=== PATIENT | female | born 1965 | race Caucasian/White ===

== ENCOUNTER 2016-11-14 11:25 | Emergency (ER) | payer OTHER ==
[~2016-11-14] VITALS: Ht 157.5 cm; Wt 37.9 kg
[~2016-11-14 11:25] MED LIST: ALBUAER2 INH; CHOL1000 PO; CITA40TA12 PO; DICY20TA10 PO; EFFSR75 PO; FLUT0.15; GABA1CAP PO; MOME200A INH; OLAN1TAB9 PO; PANT40TA PO; SPRIN/30 INH; SUCR1TAB29 PO; TAMO20TA9 PO; TOPI25TA10 PO
[2016-11-14 11:29] VITALS: TEMP 36.7; Ht 157.5 cm; Wt 37.9 kg
[2016-11-14] MEDS ORDERED: RIZATRIPTAN BENZOATE 10 MG TAB PO STA (11:57)
[2016-11-14] MEDS ORDERED: DiphenhydrAMINE HCL 50 MG/ML VIAL IV STA (12:04)
[2016-11-14] MEDS ORDERED: KETOROLAC TROMETHAMINE 15 MG/ML VIAL IV STA (12:04)
[2016-11-14] MEDS ORDERED: PROCHLORPERAZINE 5 MG/ML 2 ML VIAL IV STA (12:04)
[2016-11-14] MEDS ORDERED: KETOROLAC TROMETHAMINE 30 MG/ML VIAL ONE (12:51)
--- NOTE | 2016-11-14 13:53 | EMERGENCY ROOM VISIT NOTE ---
ED Visit Note First contact with patient: 11:47 CHIEF COMPLAINT: Migraine headache HISTORY OF PRESENT ILLNESS: This 51-year-old female patient presented to the emergency department via private vehicle with a gradual onset of a severe generalized headache that started approximately 1 hour prior to arrival. The patient states the migraine is similar to their typical migraines. There has been associated photophobia, nausea but no vomiting. The patient denies fever or chills recently, and there is no weakness or numbness of the extremities. There is no difficulty with speech or vision. No trauma to the head and no neck pain. The pain is severe, constant, and it is slowly increasing in severity. The patient rates the pain as constant and 9/10. The patient has taken Tylenol around 7 AM. The patient furnishes a prescription for Rizatriptan 10mg, which has 3 refills left on it but does not have the pill bottle. She states that she has not been able to fill the prescription yet. This is not the worst headache of the life and is similar to previous migraines. She follows with Dr. Ramirez of neurology for her headaches. REVIEW OF SYSTEMS: A review of systems was performed with positives and pertinent negatives listed in the history of present illness. All other systems were reviewed and are negative. ALLERGIES: As noted below MEDICATIONS: As noted below PMH: Migraines SOCIAL HISTORY: Patient lives locally with family PHYSICAL EXAM: Vital Signs: Reviewed Nurse's notes, vital signs stable. GENERAL : 51-year-old female, who appears in pain, but non toxic in appearance and in no acute distress. MENTAL STATUS: Alert, oriented, and coherent. HEENT: Normocephalic. PERRLA. EOMI. Nares patent without nuchal rigidity. Tympanic membranes pearly goldstein without erythema or effusion bilaterally. Mucous membranes moist. NECK: Supple, no nuchal rigidity, nontender, no lymphadenopathy. HEART: Regular rhythm and normal rate without murmurs, ectopy, gallops, or rubs. LUNGS: Clear to auscultation bilaterally without wheezes, rales or rhonchi. No dullness to percussion. No accessory muscle use. No retractions. SKIN: Normal. NEUROLOGICAL: Pupils are round, equal and react to light. The patient moves all extremities well and the gait is normal. EMERGENCY DEPARTMENT COURSE: The patient was seen and evaluated as above. The patient appears to be out of her medication, and just needs to pick pulling machine operator at the pharmacy. I offered her a tablet of the medication, and she quickly requested Dilaudid. I informed her that I this time to [place] comfortable providing her with narcotic, but will be happy to provide her with the medication of which she states that she is out of, and she has been prescribed previously for her migraines. The patient seemed to be slightly agitated at this, but the medication was ordered. I then returned and decided to offer the patient a typical migraine cocktail offered here in the emergency department, to include Benadryl Compazine and Toradol. She agreed to this medication combination. I canceled the initial rizatriptan. Because of her weight, the Benadryl was given at 25 mg intravenously, Compazine at 5 mg intravenously as well as Toradol 15 mg intravenously. Patient was reevaluated and was feeling much better. At this time she appears stable for discharge. She was educated to follow-up with her neurologist, or return for worsening. She was discharged with male driving. The differential diagnosis includes acute intracranial bleed , meningitis, encephalitis, mass or mass effect, sinusitis, infection, tumor, headache, temporal arteritis and carbon monoxide exposure, and migraine. The patient was discharged home in stable condition with Male driving. I suspect that the patient is experiencing a typical migraine, and may be exhibiting drug- seeking behavior therefore did not provide her with Dilaudid. Her subjective and objective examination is unremarkable for emergent process. DISCHARGE INSTRUCTIONS & TREATMENT: No driving or alcohol. Rest at home in a quiet dark place. Continue medications as prescribed. Follow up with family doctor if symptoms persist. Problem List Medical Problems: (1) H/O emphysema Status: Chronic Surgical Problems: (1) H/O: hysterectomy Status: Chronic Current/Historical Medications Scheduled Cholecalciferol (Vitamin D3), 2 TAB PO DAILY Citalopram Hydrobromide (Celexa), 40 MG PO DAILY Fluticasone Propionate (Nasal) (Flonase Allergy Relief), 1 SPRAY NA DAILY Gabapentin (Neurontin), 200 MG PO TID Mometasone Furoate-Formoterol (Dulera 200/5 Mcg), 1 AER INH BID Olanzapine (Zyprexa), 5 MG PO DAILY Pantoprazole (Protonix), 40 MG PO BID Sucralfate (Carafate), 1 GM PO ACHS Tamoxifen (Nolvadex), 20 MG PO HS Tiotropium [place] (Spiriva Handihaler), 1 CAP INH DAILY Topiramate (Topamax), 50 MG PO BID Venlafaxine Hcl (Effexor Extended Rel), 75 MG PO DAILY Scheduled PRN Albuterol (Ventolin Hfa), 1 PUFF INH QID PRN for Shortness of Breath Dicyclomine Hcl (Dicyclomine Hcl), 1 TAB PO QID PRN for Pain Allergies Coded Allergies: Adhesives (Verified Adverse Reaction, Mild, irritates skin, 11/14/16) Aspirin (Verified Adverse Reaction, Mild, iritates stomach, 11/14/16) Vital Signs Date Time Temp Pulse Resp B/P Pulse Ox O2 Delivery O2 Flow Rate FiO2 11/14/16 14:15 109 18 138/80 100 11/14/16 13:20 112 18 135/81 100 11/14/16 11:29 36.7 131 18 127/83 99 Room Air Medications Administered Medications (Trade) Dose Ordered Sig/Rosalino Route Start Time Stop Time Status Last Admin Dose Admin Diphenhydramine HCl (Benadryl Inj) 25 mg NOW STAT IV 11/14/16 12:04 11/14/16 12:06 DC 11/14/16 12:56 25 MG Prochlorperazine Edisylate (Compazine Inj) 5 mg NOW STAT IV 11/14/16 12:04 11/14/16 12:06 DC 11/14/16 12:57 5 MG Ketorolac Tromethamine (Toradol Inj) 30 mg STK-MED ONCE .ROUTE 11/14/16 12:51 11/14/16 12:52 DC 11/14/16 12:56 15 MG Departure Information Impression Primary Impression: Headache Dispostion Home / Self-Care Condition GOOD Referrals Candace Benedict M.D. (PCP) Patient Instructions My [facility] Additional Instructions You have been treated in the Emergency Department for a Headache. You have received pain medicine in the emergency department which impairs your ability to operate a vehicle. It is illegal for you to drive after receiving these medicines. For pain control, you can use the following [id number] medicine: Tylenol ibuprofen. Please pick pulling machine operator your prescription for the Maxalt (Rizatriptan ) You should relax in a quiet, dark place for the rest of the day. Avoid any possible triggers including: cigarette smoke, caffeine, nicotine, chocolate, wine, beer, loud noises or music, or bright lights. You should schedule a follow-up appointment in 2-3 days with your Primary Care Provider or established Neurologist for further evaluation and treatment of your Headache. Return to the Emergency Department if your current symptoms worsen despite treatment course outlined above, or if you develop any of the following symptoms : intractable pain despite aforementioned treatment course, visual disturbances , loss of vision, unilateral weakness or facial drooping, slurring of speech, loss of coordination, or loss of consciousness. Please return to the emergency department with any new/concerning symptoms.
[2016-11-14 14:15] VITALS: BP 138/80; PULSE 109; O2SAT 100
== END 2016-11-14 14:16 | disposition home or self-care (01) ==
LOC: C.EDB 11:26 → C.EDD 14:16
DX: G43.909 Migraine, unspecified, not intractable, without status migrainosus (principal); J43.9 Emphysema, unspecified; Z90.710 Acquired absence of both cervix and uterus; Z79.899 Other long term (current) drug therapy

== ENCOUNTER 2016-12-02 15:10 | Emergency (ER) | payer OTHER ==
[~2016-12-02] VITALS: Ht 157.5 cm; Wt 36.8 kg
[2016-12-02 15:13] VITALS: TEMP 36.8; Ht 157.5 cm; Wt 36.8 kg
[2016-12-02] MEDS ORDERED: ONDANSETRON INJ 2 MG/ML 2 ML VIAL IV STA (15:48)
[2016-12-02 15:56] LABS: BASO % 0.3 %; BASO ABS # 0.02 K/uL (0-0.2); COMPLETE YES; EOS % 0.6 %; HEMATOCRIT 42.2 % (37-47); IG% 0.3 %; LYMPH % 24.7 %; LYMPH ABS # 1.68 K/uL (1.2-3.4); MEAN CELL VOLUME 88.8 fL (80-100); MEAN CORPUSCULAR HEMOGLOBIN 30.7 pg (25-34); MEAN CORPUSCULAR HGB CONC 34.6 g/dl (32-36); MEAN PLATELET VOLUME 8.6 fL (7.4-10.4); NEUT % 68.1 %; PLATELET COUNT 259 K/uL (130-400); RED BLOOD COUNT 4.75 M/uL (4.2-5.4); WHITE BLOOD COUNT 6.79 K/uL (4.8-10.8)
[2016-12-02] MEDS: HYDROmorphone INJ 0.5 MG/0.5 ML SYR IV PRN ×2 (15:58→17:31)
[2016-12-02 16:00] LABS: PREG INTERNAL NEGATIVE QC NEG CLEAR BACKGROUND; PREG INTERNAL POSITIVE QC POS CONTROL LINE; URINE APPEARANCE CLEAR (CLEAR); URINE BILIRUBIN NEG (NEG); URINE COLOR YELLOW; URINE NITRITE NEG (NEG); URINE SPECIFIC GRAVITY 1.019 (1.000-1.030); UROBILINOGEN NEG (NEG); ZZUR CULT IF INDIC CLEAN CATCH NO
[2016-12-02] MEDS ORDERED: OPTIRAY 320 IV PRN (16:00)
[2016-12-02 16:03] LABS: MANUAL MICROSCOPIC REQUIRED? NO; REVIEW REQ? NO
[2016-12-02] MEDS ORDERED: EFFSR150 PO (16:24)
[2016-12-02] MEDS ORDERED: ROFL1TAB5 PO (16:24)
[2016-12-02] MEDS ORDERED: VNTHFA/IN INH (16:24)
[2016-12-02] MEDS ORDERED: ATV5X PO (16:24)
[2016-12-02] MEDS ORDERED: ALUM-30 PO (16:24)
[2016-12-02] MEDS ORDERED: VENL37.593 PO (16:24)
[2016-12-02 16:26] LABS: ALKALINE PHOSPHATASE 64 U/L (45-117); ALT/SGPT 20 U/L (12-78); AST/SGOT 12 U/L (15-37); BLOOD UREA NITROGEN 11 mg/dl (7-18); BUN/CREATININE RATIO 13.4 (10-20); CALCIUM 8.6 mg/dl (8.5-10.1); CARBON DIOXIDE 24 mmol/L (21-32); CHLORIDE 110 mmol/L (98-107); CREATININE 0.83 mg/dl (0.60-1.20); GLUCOSE 81 mg/dl (70-99); POTASSIUM 3.8 mmol/L (3.5-5.1); SODIUM 142 mmol/L (136-145)
--- NOTE | 2016-12-02 18:17 | DIAGNOSTIC IMAGING REPORT ---
CT OF THE ABDOMEN AND PELVIS WITH CONTRAST CLINICAL HISTORY: Right lower quadrant abdominal pain. COMPARISON STUDY: CT of the abdomen and pelvis January 31, 2016 TECHNIQUE: Following IV administration of 120 mL of Optiray-320, axial images of the abdomen and pelvis were obtained from the lung bases to the proximal femurs. Images were reviewed in the axial, sagittal, and coronal planes. IV contrast was administered without complication. Oral contrast was administered. CT DOSE: 236.78 mGy.cm FINDINGS: Several calcified granulomas are noted within the lungs. There are calcified granulomas within the spleen. The liver, adrenal glands, kidneys and pancreas are normal. There is no biliary or pancreatic ductal dilatation. No peripancreatic or pericholecystic infiltration. There is mild distention of the stomach. There is no evidence for a bowel obstruction. The appendix is normal. There is no ascites. No lymphadenopathy is present. Skeletal structures are unremarkable. The uterus is surgically absent. Pelvic calcifications reflect phleboliths. IMPRESSION: No acute process within the abdomen or pelvis. Normal appendix. Electronically signed by: Henri Salcedo M.D. 12/02/2016 6:16 PM Dictated Date/Time: 12/02/2016 6:10 PM
[2016-12-02 18:23] VITALS: BP 135/70; PULSE 88; O2SAT 98
[2016-12-02] MEDS ORDERED: BENTYL HOME PACK 10 MG VIAL PO ONE (18:45)
[2016-12-02] MEDS ORDERED: PHENERGAN 25MG HOMEPACK PO ONE (18:45)
--- NOTE | 2016-12-03 01:20 | EMERGENCY ROOM VISIT NOTE ---
History Report prepared by Bekah: Kirsten Castle Under the Supervision of: Dr. Frank Hannah M.D. First contact with patient: 15:41 Chief Complaint: ABDOMINAL PAIN Stated Complaint: RT SIDE PAIN Nursing Triage Summary: Pt c/o right lower abdomen, tylenol not helping. Patient began this morning. States urinating more often. Denies v/d, associates nausea. Pt states she lost 15 pounds in the last month "I've been having stomach problems...now I'm having stress problems" History of Present Illness The patient is a 51 year old female who presents to the Emergency Room with complaints of persistent right lower quadrant abdominal pain that began this morning. She currently rates her discomfort as a 9/10 in severity. The patient states that she has experienced similar pain in the past and describes her discomfort as a stabbing pain and cramping pain. She states that the stabbing pain comes and goes, but notes a persistent aching pain. The patient associates nausea with her symptoms today. She reports a normal appetite. The patient states that her pain worsens with movement. She states that several days ago she was constipated, but states that she has had normal bowel movements over the past day. The patient notes a history of a hysterectomy, but denies any history of a kidney stone, cholecystectomy, or appendectomy. She states that she has taken Tylenol without relief of her symptoms. Pt denies LOC, headache, fevers, chills, diaphoresis, visual changes, neck pain, chest pain, breathing difficulties, vomiting, back pain, melena, hematochezia, urinary symptoms, numbness, weakness, lymphadenopathy, rash, or other complaints. Source of History: patient Onset: this morning Position: abdomen (RLQ) Symptom Intensity: 9/10 Quality: ache, stabbing, cramping Timing: other (persistent) Modifying Factors (Worsening): movement Associated Symptoms: + nausea Review of Systems See HPI for pertinent positives and negatives. A total of ten systems were reviewed and were otherwise negative. Past Medical & Surgical Medical Problems: (1) H/O emphysema Surgical Problems: (1) H/O: hysterectomy (2) Hx of BSO (bilateral salpingo-oophorectomy) Family History Cancer Diabetes mellitus Heart disease Hypertension Kidney disease Kidney stones Liver disease Lung disease Seizures Social History Smoking Status: Current Every Day Smoker Drug Use: none Marital Status: Housing Status: lives with family Occupation Status: unemployed Current/Historical Medications Scheduled Alum & Mag Hydrox-Simethicone (Mylanta), 1 DOSE PO TID Cholecalciferol (Vitamin D3), 2 TAB PO DAILY Citalopram Hydrobromide (Celexa), 40 MG PO DAILY Fluticasone Propionate (Nasal) (Flonase Allergy Relief), 1 SPRAY NA DAILY Gabapentin (Neurontin), 200 MG PO TID Lorazepam (Lorazepam), 1 TAB PO BID Mometasone Furoate-Formoterol (Dulera 200/5 Mcg), 1 AER INH BID Olanzapine (Zyprexa), 5 MG PO DAILY Pantoprazole (Protonix), 40 MG PO BID Roflumilast (Daliresp), 1 TAB PO DAILY Sucralfate (Carafate), 1 GM PO ACHS Tamoxifen (Nolvadex), 20 MG PO HS Tiotropium [place] (Spiriva Handihaler), 1 CAP INH DAILY Topiramate (Topamax), 50 MG PO BID Venlafaxine Hcl (Venlafaxine Extended Rel), 1 CAP PO QAM Venlafaxine Hcl (Effexor Extended Rel), 1 CAP PO QAM Scheduled PRN Albuterol Hfa (Ventolin Hfa), 2-4 PUFFS INH Q6H PRN for SOB/Wheezing Dicyclomine Hcl (Dicyclomine Hcl), 1 TAB PO QID PRN for Pain Allergies Coded Allergies: Adhesives (Verified Adverse Reaction, Mild, irritates skin, 12/02/16) Aspirin (Verified Adverse Reaction, Mild, iritates stomach, 12/02/16) Physical Exam Vital Signs Date Time Temp Pulse Resp B/P Pulse Ox O2 Delivery O2 Flow Rate FiO2 12/02/16 18:23 88 16 135/70 98 Room Air 12/02/16 16:53 86 16 136/86 98 Room Air 12/02/16 16:07 97 12/02/16 15:59 88 16 127/72 100 Room Air 12/02/16 15:13 36.8 131 17 110/63 97 Room Air Physical Exam GENERAL: Awake, alert, well-appearing, in no distress HENT: Normocephalic, atraumatic. Oropharynx unremarkable. EYES: Normal conjunctiva. Sclera non-icteric. NECK: Supple. No nuchal rigidity. FROM. No JVD. RESPIRATORY: Clear to auscultation. CARDIAC: Regular rate, normal rhythm. Extremities warm and well perfused. Pulses equal. ABDOMEN: Mild guarding and tenderness to percussion in the right lower quadrant. Soft, non-distended. No rebound. No masses. RECTAL: Deferred. MUSCULOSKELETAL: Chest examination reveals no tenderness. The back is symmetrical on inspection without obvious abnormality. There is no CVA tenderness to palpation. No joint edema. LOWER EXTREMITIES: Calves are equal size bilaterally and non-tender. No edema. No discoloration. NEURO: Normal sensorium. No sensory or motor deficits noted. SKIN: No rash or jaundice noted. Medical Decision & Procedures ER Provider Diagnostic Interpretation: CT: Radiology results as stated below per my review and radiologist interpretation CT OF THE ABDOMEN AND PELVIS WITH CONTRAST CLINICAL HISTORY: Right lower quadrant abdominal pain. COMPARISON STUDY: CT of the abdomen and pelvis January 31, 2016 TECHNIQUE: Following IV administration of 120 mL of Optiray-320, axial images of the abdomen and pelvis were obtained from the lung bases to the proximal femurs. Images were reviewed in the axial, sagittal, and coronal planes. IV contrast was administered without complication. Oral contrast was administered. CT DOSE: 236.78 mGy.cm FINDINGS: Several calcified granulomas are noted within the lungs. There are calcified granulomas within the spleen. The liver, adrenal glands, kidneys and pancreas are normal. There is no biliary or pancreatic ductal dilatation. No peripancreatic or pericholecystic infiltration. There is mild distention of the stomach. There is no evidence for a bowel obstruction. The appendix is normal. There is no ascites. No lymphadenopathy is present. Skeletal structures are unremarkable. The uterus is surgically absent. Pelvic calcifications reflect phleboliths. IMPRESSION: No acute process within the abdomen or pelvis. Normal appendix. Electronically signed by: Henri Salcedo M.D. 12/02/2016 6:16 PM Dictated Date/Time: 12/02/2016 6:10 PM Laboratory Results 12/02/16 15:35 Red Blood Count 4.75, Mean Corpuscular Volume 88.8, Mean Corpuscular Hemoglobin 30.7, Mean Corpuscular Hemoglobin Concent 34.6, Mean Platelet Volume 8.6, Neutrophils (%) (Auto) 68.1, Lymphocytes (%) (Auto) 24.7, Monocytes (%) (Auto) 6.0, Eosinophils (%) (Auto) 0.6, Basophils (%) (Auto) 0.3, Neutrophils # (Auto) 4.62, Lymphocytes # (Auto) 1.68, Monocytes # (Auto) 0.41, Eosinophils # (Auto) 0.04, Basophils # (Auto) 0.02 12/02/16 15:35 Test 12/02/16 15:35 White Blood Count 6.79 K/uL (4.8-10.8) Red Blood Count 4.75 M/uL (4.2-5.4) Hemoglobin 14.6 g/dL (12.0-16.0) Hematocrit 42.2 % (37-47) Mean Corpuscular Volume 88.8 fL (80-100) Mean Corpuscular Hemoglobin 30.7 pg (25-34) Mean Corpuscular Hemoglobin Concent 34.6 g/dl (32-36) Platelet Count 259 K/uL (130-400) Mean Platelet Volume 8.6 fL (7.4-10.4) Neutrophils (%) (Auto) 68.1 % Lymphocytes (%) (Auto) 24.7 % Monocytes (%) (Auto) 6.0 % Eosinophils (%) (Auto) 0.6 % Basophils (%) (Auto) 0.3 % Neutrophils # (Auto) 4.62 K/uL (1.4-6.5) Lymphocytes # (Auto) 1.68 K/uL (1.2-3.4) Monocytes # (Auto) 0.41 K/uL (0.11-0.59) Eosinophils # (Auto) 0.04 K/uL (0-0.5) Basophils # (Auto) 0.02 K/uL (0-0.2) RDW Standard Deviation 43.4 fL (36.4-46.3) RDW Coefficient of Variation 13.3 % (11.5-14.5) Immature Granulocyte % (Auto) 0.3 % Immature Granulocyte # (Auto) 0.02 K/uL (0.00-0.02) Urine Color YELLOW Urine Appearance CLEAR (CLEAR) Urine pH 7.0 (4.5-7.5) Urine Specific [place] 1.019 (1.000-1.030) Urine Protein NEG (NEG) Urine Glucose (UA) NEG (NEG) Urine Ketones NEG (NEG) Urine Occult Blood NEG (NEG) Urine Nitrite NEG (NEG) Urine Bilirubin NEG (NEG) Urine Urobilinogen NEG (NEG) Urine Leukocyte Esterase NEG (NEG) Anion Gap 8.0 mmol/L (3-11) Est Creatinine Clear Calc Drug Dose 46.1 ml/min Estimated GFR () 94.0 Estimated GFR (Non- 81.1 BUN/Creatinine Ratio 13.4 (10-20) Calcium Level 8.6 mg/dl (8.5-10.1) Total Bilirubin 0.3 mg/dl (0.2-1) Direct Bilirubin < 0.1 mg/dl (0-0.2) Aspartate Amino Transf (AST/SGOT) 12 U/L (15-37) Alanine Aminotransferase (ALT/SGPT) 20 U/L (12-78) Alkaline Phosphatase 64 U/L (45-117) Total Protein 8.0 gm/dl (6.4-8.2) Albumin 4.0 gm/dl (3.4-5.0) Lipase 252 U/L (73-393) Human Chorionic Gonadotropin, Qual NEG (NEG) Laboratory results reviewed by me Medications Administered Medications (Trade) Dose Ordered Sig/Rosalino Route Start Time Stop Time Status Last Admin Dose Admin Hydromorphone HCl (Dilaudid Inj) 0.5 mg Q20M PRN IV 12/02/16 16:00 12/02/16 19:42 DC 12/02/16 17:31 0.5 MG Ondansetron HCl (Zofran Inj) 4 mg NOW STAT IV 12/02/16 15:48 12/02/16 15:49 DC 12/02/16 15:58 4 MG ED Course 1547: The patient was evaluated in room C2B. A complete history and physical exam was performed. 1548: Ordered Zofran Injection 4 mg IV. 1600: Ordered Dilaudid Inject 0.5 mg IV. 1632: I reevaluated the patient and she is doing well. 183: I reevaluated the patient. Discussed results and discharge instructions: She verbalized understanding and agreement. The patient is ready for discharge. 1845: I ordered Dicyclomine HCl 1 each PO, Promethazine HCl 1 homepack PO. Medical Decision Triage Nursing notes reviewed. The patient's presentation and history were concerning for abdominal pain. Etiologies such as appendicitis, diverticulitis, obstruction, inflammatory bowel disease, renal colic, PUD, biliary pathology, pancreatitis, mesenteric ischemia, aortic pathology, infections, genitourinary, UTI, perforated viscus, as well as others were entertained. The patient was evaluated. She had tenderness in the right lower quadrant. She was treated with Zofran, fluids, and Dilaudid. On reassessment she felt better. Her CBC, chemistry panel, LFTs, lipase, and urinalysis were unremarkable. Patient has had a prior RACHEL/BSO. CT imaging was ordered. The patient underwent CT imaging and this was unremarkable. The patient was reassessed and states that she was feeling much better. The patient did question if this may be related to stress. This is possible. I discussed conservative management with the patient. She felt comfortable with this. She will follow-up with her primary physician. She worsens in any way she will come back. By the evaluation outlined above other emergent etiologies such as those listed in the differential, as well as others, were deemed relatively unlikely. The patient and significant other were informed about the findings as listed above. All questions were answered and they were pleased with the treatment. Return instructions were outlined and the patient was discharged in stable condition. The patient was referred to her PCP for follow-up this week for a recheck of the current condition. The chart was completed utilizing [employer] Speech voice recognition software. Grammatical errors, random word insertions, pronoun errors, and incomplete sentences are an occasional consequence of this system due to software limitations, ambient noise, and hardware issues. Any formal questions or concerns about the content, text, or information contained within the body of this dictation should be directly addressed to the physician for clarification. [place] Drug Monitoring Program Search Results: patient reviewed within database, no issues identified ( prescriptions noted, but no issues identified) Impression Primary Impression: Right lower quadrant abdominal pain Scribe Attestation The scribe's documentation has been prepared under my direction and personally reviewed by me in its entirety. I confirm that the note above accurately reflects all work, treatment, procedures, and medical decision making performed by me. Departure Information Dispostion Home / Self-Care Referrals No Doctor, Assigned (PCP) Forms Call Back Authorization, HOME CARE DOCUMENTATION FORM, IMPORTANT VISIT INFORMATION Patient Instructions My [facility] Additional Instructions ABDOMINAL PAIN INSTRUCTIONS: DO NOT drive, drink alcohol, operate machinery, or perform dangerous activities today. You were given medications in the ER that can affect your ability to safely function or operate a vehicle. Bentyl(dicyclomine) 10 mg: Take one tablet 4 times daily as needed for abdominal pain. Discontinue this medication if you develop any rash, itching, increased abdominal pain, heartburn, increased nausea, constipation, or as needed. Acetaminophen(Tylenol) may be used for fever or pain. Use 650mg every six hours as needed. Call Phenergan(promethazine) tablets 25mg: Take one every six hours as needed for nausea. Avoid alcohol, operating machinery or dangerous equipment, working on ladders or roofs, DRIVING, or situations where being under the influence may be dangerous. Rest and drink plenty of fluids as tolerated. Slow sips of water or sports drinks are recommended instead of large amounts all at once. Continue current medications. Once your stomach is settled start with a clear liquid diet (jello, soup broth, etc.) and then advance as tolerated. You should avoid full, heavy meals for about 24 hrs from the time your symptoms resolved. Return to the ER immediately for worsening or persistent abdominal pain, vomiting, fevers, chest pains, difficulty breathing, black or bloody stools, worsening of your condition, or as needed. Follow up with your primary physician in 2-3 days for a recheck of your current condition.
== END 2016-12-02 18:56 | disposition home or self-care (01) ==
LOC: C.EDB 15:11 → C.EDC 18:56
DX: R10.31 Right lower quadrant pain (principal); Z90.710 Acquired absence of both cervix and uterus; Z80.9 Family history of malignant neoplasm, unspecified; Z83.3 Family history of diabetes mellitus; Z82.49 Family history of ischemic heart disease and other diseases of the circulatory system; Z82.0 Family history of epilepsy and other diseases of the nervous system; F17.210 Nicotine dependence, cigarettes, uncomplicated; Z79.899 Other long term (current) drug therapy

== ENCOUNTER 2016-12-24 19:02 | Emergency (ER) | payer OTHER ==
[~2016-12-24] VITALS: Ht 157.5 cm; Wt 38.7 kg
[~2016-12-24 19:02] MED LIST changes: -ALBUAER2 INH; +ALUM-30 PO; +ATV5X PO; +EFFSR150 PO; -EFFSR75 PO; +ROFL1TAB5 PO; +VENL37.593 PO; +VNTHFA/IN INH
[2016-12-24 19:06] VITALS: TEMP 36.9; Ht 157.5 cm; Wt 38.7 kg
[2016-12-24] MEDS ORDERED: ALUMINUM/MAGNESIUM SUSP 30 ML UDC PO STA (21:16)
[2016-12-24] MEDS ORDERED: ONDANSETRON INJ 2 MG/ML 2 ML VIAL IV STA (21:16)
[2016-12-24] MEDS ORDERED: LIDOCAINE HCL 2% VISC SOLN 20 ML UDC PO STA (21:16)
[2016-12-24 21:25] LABS: BASO % 0.2 %; BASO ABS # 0.01 K/uL (0-0.2); COMPLETE YES; EOS % 0.7 %; HEMATOCRIT 33.9 % (37-47); IG% 0.2 %; LYMPH % 29.6 %; LYMPH ABS # 1.63 K/uL (1.2-3.4); MEAN CELL VOLUME 87.6 fL (80-100); MEAN CORPUSCULAR HEMOGLOBIN 30.2 pg (25-34); MEAN CORPUSCULAR HGB CONC 34.5 g/dl (32-36); MEAN PLATELET VOLUME 8.7 fL (7.4-10.4); MONO % 7.5 %; NEUT % 61.8 %; PLATELET COUNT 270 K/uL (130-400); RED BLOOD COUNT 3.87 M/uL (4.2-5.4)
[2016-12-24 21:37] LABS: URINE APPEARANCE CLEAR (CLEAR); URINE BILIRUBIN NEG (NEG); URINE COLOR YELLOW; URINE NITRITE NEG (NEG); URINE SPECIFIC GRAVITY 1.022 (1.000-1.030); UROBILINOGEN NEG (NEG); ZZUR CULT IF INDIC CLEAN CATCH NO
[2016-12-24 21:42] LABS: BUN/CREATININE RATIO 16.7 (10-20); CREATININE 0.72 mg/dl (0.60-1.20); POTASSIUM 3.3 mmol/L (3.5-5.1)
[2016-12-24 21:42] LABS: MANUAL MICROSCOPIC REQUIRED? NO; REVIEW REQ? NO
[2016-12-24 21:45] LABS: ALB/GLOB RATIO 0.9 (0.9-2)
[2016-12-24] MEDS ORDERED: KETOROLAC TROMETHAMINE 30 MG/ML VIAL IV STA (22:26)
[2016-12-24] MEDS ORDERED: HYOSCYAMINE SULFATE 0.125 MG SL TAB SL STA (22:26)
[2016-12-24] MEDS ORDERED: FAMOTIDINE 20 MG TAB PO ONE (22:30)
[2016-12-24 22:51] LABS: CALCIUM 8.6 mg/dl (8.5-10.1)
[2016-12-24 23:05] VITALS: BP 133/75; PULSE 79; O2SAT 98
--- NOTE | 2016-12-25 00:35 | EMERGENCY ROOM VISIT NOTE ---
History Report prepared by Bekah: Osbaldo Romo Under the Supervision of: Dr. Bryant Adames M.D. First contact with patient: 21:06 Chief Complaint: ABDOMINAL PAIN Stated Complaint: BELLY PAIN Nursing Triage Summary: Epigastric pain that started this AM. Radiating into back. Took tylenol, carafate, and other "stomach meds". Nausea. History of Present Illness The patient is a 51 year old female who presents to the Emergency Room with complaints of intermittent, stabbing epigastric pain beginning this morning. She currently rates her discomfort a 9/10 in severity. The patient states that this morning she ate chinese toast and a ham and cheese [employer]. She reports that she took two doses of Tylenol, the first one worked and the second one did not. She states that she has had these symptoms of intermittently for a very long time. She's had multiple workups including evaluation of her gallbladder which has been negative. The patient notes that she has a history of GERD, and this feels like her GERD symptoms. She reports that she has had GERD for a few years now. She is nauseous. The patient denies fever, vomiting, melena, urinary symptoms, chest pain and shortness of breath. Source of History: patient Onset: this morning Position: abdomen (epigastric) Symptom Intensity: 9/10 Quality: stabbing Timing: intermittent Associated Symptoms: + nausea, No fevers, No chest pain, No SOB, No vomiting , No melena, No urinary symptoms Review of Systems See HPI for pertinent positives & negatives. A total of 10 systems reviewed and were otherwise negative. Past Medical & Surgical Medical Problems: (1) H/O emphysema Surgical Problems: (1) H/O: hysterectomy (2) Hx of BSO (bilateral salpingo-oophorectomy) Family History Cancer Diabetes mellitus Heart disease Hypertension Kidney disease Kidney stones Liver disease Lung disease Seizures Social History Smoking Status: Current Every Day Smoker Drug Use: none Marital Status: Housing Status: lives with family Occupation Status: unemployed Current/Historical Medications Scheduled Alum & Mag Hydrox-Simethicone (Mylanta), 1 DOSE PO TID Cholecalciferol (Vitamin D3), 2 TAB PO DAILY Citalopram Hydrobromide (Celexa), 40 MG PO DAILY Dicyclomine Hcl (Dicyclomine Hcl), 20 MG PO QID Fluticasone Propionate (Nasal) (Flonase Allergy Relief), 1 SPRAY NA DAILY Gabapentin (Neurontin), 200 MG PO TID Lorazepam (Lorazepam), 0.5 MG PO BID Mometasone Furoate-Formoterol (Dulera 200/5 Mcg), 1 AER INH BID Pantoprazole (Protonix), 40 MG PO BID Roflumilast (Daliresp), 1 TAB PO DAILY Sucralfate (Carafate), 1 GM PO ACHS Tamoxifen (Nolvadex), 20 MG PO HS Tiotropium [place] (Spiriva Handihaler), 1 CAP INH DAILY Topiramate (Topamax), 50 MG PO BID Venlafaxine Hcl (Venlafaxine Extended Rel), 1 CAP PO QAM Venlafaxine Hcl (Effexor Extended Rel), 1 CAP PO QAM Scheduled PRN Albuterol Hfa (Ventolin Hfa), 2-4 PUFFS INH Q6H PRN for SOB/Wheezing Allergies Coded Allergies: Adhesives (Verified Adverse Reaction, Mild, irritates skin, 12/24/16) Aspirin (Verified Adverse Reaction, Mild, iritates stomach, 12/24/16) Physical Exam Vital Signs Date Time Temp Pulse Resp B/P (MAP) Pulse Ox O2 Delivery O2 Flow Rate FiO2 12/24/16 23:05 79 18 133/75 98 12/24/16 21:32 82 12/24/16 21:30 84 18 140/87 98 Room Air 12/24/16 19:06 36.9 117 17 123/85 97 Room Air Physical Exam Constitutional: Vital signs reviewed. Eyes: Pupils are equal round reactive to light. Conjunctiva are noninjected. ENT: Pharynx is clear without erythema or exudate. Mucous membranes are moist. Neck supple without meningeal signs. Respiratory: Clear to auscultation bilaterally. Breath sounds are equal bilaterally. Cardiovascular: Regular rate and rhythm. No rubs or gallops. Abdomen: Epigastric tenderness, no guarding. GI: Soft, nondistended and nontender. Bowel sounds are present. Musculoskeletal: No peripheral edema. No lower extremity tenderness. Integumentary: No cyanosis. Neurological: The patient is awake and alert. No focal deficits. Psychiatric: Normal affect. Medical Decision & Procedures Laboratory Results 12/24/16 21:00 Red Blood Count 3.87, Mean Corpuscular Volume 87.6, Mean Corpuscular Hemoglobin 30.2, Mean Corpuscular Hemoglobin Concent 34.5, Mean Platelet Volume 8.7, Neutrophils (%) (Auto) 61.8, Lymphocytes (%) (Auto) 29.6, Monocytes (%) (Auto) 7.5, Eosinophils (%) (Auto) 0.7, Basophils (%) (Auto) 0.2, Neutrophils # (Auto) 3.40, Lymphocytes # (Auto) 1.63, Monocytes # (Auto) 0.41, Eosinophils # (Auto) 0.04, Basophils # (Auto) 0.01 12/24/16 21:00 Test 12/24/16 20:50 12/24/16 21:00 Urine Color YELLOW Urine Appearance CLEAR (CLEAR) Urine pH 7.0 (4.5-7.5) Urine Specific [place] 1.022 (1.000-1.030) Urine Protein NEG (NEG) Urine Glucose (UA) NEG (NEG) Urine Ketones NEG (NEG) Urine Occult Blood NEG (NEG) Urine Nitrite NEG (NEG) Urine Bilirubin NEG (NEG) Urine Urobilinogen NEG (NEG) Urine Leukocyte Esterase NEG (NEG) White Blood Count 5.50 K/uL (4.8-10.8) Red Blood Count 3.87 M/uL (4.2-5.4) Hemoglobin 11.7 g/dL (12.0-16.0) Hematocrit 33.9 % (37-47) Mean Corpuscular Volume 87.6 fL (80-100) Mean Corpuscular Hemoglobin 30.2 pg (25-34) Mean Corpuscular Hemoglobin Concent 34.5 g/dl (32-36) Platelet Count 270 K/uL (130-400) Mean Platelet Volume 8.7 fL (7.4-10.4) Neutrophils (%) (Auto) 61.8 % Lymphocytes (%) (Auto) 29.6 % Monocytes (%) (Auto) 7.5 % Eosinophils (%) (Auto) 0.7 % Basophils (%) (Auto) 0.2 % Neutrophils # (Auto) 3.40 K/uL (1.4-6.5) Lymphocytes # (Auto) 1.63 K/uL (1.2-3.4) Monocytes # (Auto) 0.41 K/uL (0.11-0.59) Eosinophils # (Auto) 0.04 K/uL (0-0.5) Basophils # (Auto) 0.01 K/uL (0-0.2) RDW Standard Deviation 43.9 fL (36.4-46.3) RDW Coefficient of Variation 13.6 % (11.5-14.5) Immature Granulocyte % (Auto) 0.2 % Immature Granulocyte # (Auto) 0.01 K/uL (0.00-0.02) Anion Gap 9.0 mmol/L (3-11) Est Creatinine Clear Calc Drug Dose 55.8 ml/min Estimated GFR () 111.6 Estimated GFR (Non- 96.3 BUN/Creatinine Ratio 16.7 (10-20) Calcium Level 8.6 mg/dl (8.5-10.1) Total Bilirubin 0.1 mg/dl (0.2-1) Aspartate Amino Transf (AST/SGOT) 17 U/L (15-37) Alanine Aminotransferase (ALT/SGPT) 20 U/L (12-78) Alkaline Phosphatase 58 U/L (45-117) Troponin I < 0.015 ng/ml (0-0.045) Total Protein 6.5 gm/dl (6.4-8.2) Albumin 3.1 gm/dl (3.4-5.0) Globulin 3.4 gm/dl (2.5-4.0) Albumin/Globulin Ratio 0.9 (0.9-2) Lipase 279 U/L (73-393) Laboratory results as reviewed by me. Medications Administered Medications (Trade) Dose Ordered Sig/Rosalino Route Start Time Stop Time Status Last Admin Dose Admin Lidocaine HCl (Viscous Lidocaine 2% Soln) 10 ml NOW STAT PO 12/24/16 21:16 12/24/16 21:17 DC 12/24/16 21:29 10 ML Al Hydroxide/Mg Hydroxide (Maalox Susp) 30 ml NOW STAT PO 12/24/16 21:16 12/24/16 21:17 DC 12/24/16 21:29 30 ML Ondansetron HCl (Zofran Inj) 4 mg NOW STAT IV 12/24/16 21:16 12/24/16 21:17 DC 12/24/16 21:29 4 MG Famotidine (Pepcid Tab) 20 mg NOW ONCE PO 12/24/16 22:30 12/24/16 22:31 DC 12/24/16 22:39 20 MG Hyoscyamine Sulfate (Levsin Tab) 0.125 mg NOW STAT SL 12/24/16 22:26 12/24/16 22:28 DC 12/24/16 22:39 0.125 MG Ketorolac Tromethamine (Toradol Inj) 10 mg NOW STAT IV 12/24/16 22:26 12/24/16 22:28 DC 12/24/16 22:39 10 MG ECG Indication: abdominal pain Rate (beats per minute): 92 Rhythm: normal sinus Findings: no ectopy, other (no ST elevation) ED Course 2108: The patient was evaluated in room C06. A complete history and physical exam was performed. 2115: Ordered Zofran Inj 4mg IV, Maalox Susp 30ml PO, Lidocaine HCl 10ml PO 2225: Ordered Toradol Inj 10mg IV, Levsin Tab 0.125mg SL 2229: Ordered Pepcid Tab 20mg PO 2238: I reevaluated the patient, and she is feeling better. I told her to follow up with her PCP and eat a bland diet. She declined a rectal exam and said she has been anemic in the past. The treatment plan was discussed, and she verbalized complete understanding. The patient was discharged home. Medical Decision This is a 51-year-old female presents with epigastric pain. Differential diagnosis includes GERD, peptic ulcer disease, gastritis, pancreatitis, cholelithiasis. I did perform a limited focused review of portions of the patient's old chart on the electronic medical record. The patient was seen here on December 02 for right-sided abdominal pain. She had a CT of the abdomen and pelvis that showed no acute process. Her blood work was unremarkable, and she had a negative test. She was treated with Dilaudid and Zofran, and she was told to follow up with her PCP. Medication Reconciliation: I attest that I have personally reviewed the patient' s current medication list. Blood Pressure Screening: Patient was found to have a slightly elevated blood pressure due to circumstances. I do not believe that the patient requires hypertension monitoring. I did evaluate the patient as noted above. She is presenting with epigastric pain which she has had for a long time. She states it is worse today and her usual medications were not helping. She does state that this feels like her GERD symptoms. IV access was established. The patient was placed on a continuous cardiac technologist. I did order and personally review the patient's 12- lead EKG as described above. I did treat her with Zofran and a GI cocktail. She did feel some relief but still had pain and so I did treat her with Pepcid and Levsin. She was also given Toradol 10 mg IV. I did order and review the patient's blood work as noted in the electronic medical record. Her white blood cell count is not elevated. She does have mild anemia. She states that she has had anemia in the past and declined rectal examination. She denies any melena or rectal bleeding. I did discuss the test results with her. I did recommend a bland diet and close follow up with her doctor. She was discharged in good condition. Impression Primary Impression: Epigastric abdominal pain Additional Impression: Anemia Scribe Attestation The scribe's documentation has been prepared under my direct and personally reviewed by me in its entirety. I confirm that the note above accurately reflects all work, treatment, procedures, and medical decision making performed by me. Departure Information Dispostion Home / Self-Care Referrals No Doctor, Assigned (PCP) Forms Call Back Authorization, HOME CARE DOCUMENTATION FORM, IMPORTANT VISIT INFORMATION Patient Instructions Abdominal Pain - [facility], ED Anemia Type Not Specified, My [facility] Additional Instructions You have been examined and treated today on an emergency basis only. This is not a substitute for, or an effort to provide, complete comprehensive medical care. It is impossible to recognize and treat all injuries or illnesses in a single emergency department visit. It is therefore important that you follow up closely with your physician. Call as soon as possible for an appointment. Return for worsening symptoms or if you develop fever, vomiting, black or bloody stools or any other concerning symptoms. Problem Qualifiers Additional Impression: Anemia Anemia type: unspecified type Qualified Codes: D64.9 - Anemia, unspecified
== END 2016-12-24 23:05 | disposition home or self-care (01) ==
LOC: C.EDB 19:03 → C.EDC 23:05
DX: R10.13 Epigastric pain (principal); D64.9 Anemia, unspecified; Z83.3 Family history of diabetes mellitus; Z82.49 Family history of ischemic heart disease and other diseases of the circulatory system; Z82.0 Family history of epilepsy and other diseases of the nervous system; F17.200 Nicotine dependence, unspecified, uncomplicated

== ENCOUNTER 2017-01-13 13:12 | Emergency (ER) | payer OTHER ==
[~2017-01-13] VITALS: Ht 157.5 cm; Wt 39.1 kg
[~2017-01-13 13:12] MED LIST changes: -OLAN1TAB9 PO; +TAMO20TA47 PO; -TAMO20TA9 PO
[2017-01-13 13:14] VITALS: TEMP 36.7; Ht 157.5 cm; Wt 39.1 kg
[2017-01-13] MEDS ORDERED: PROCHLORPERAZINE 5 MG/ML 2 ML VIAL IV STA (13:48)
[2017-01-13] MEDS ORDERED: DiphenhydrAMINE HCL 50 MG/ML VIAL IV STA (13:48)
[2017-01-13] MEDS ORDERED: ONDANSETRON INJ 2 MG/ML 2 ML VIAL IV STA (13:48)
[2017-01-13] MEDS ORDERED: KETOROLAC TROMETHAMINE 30 MG/ML VIAL IV STA (13:48)
--- NOTE | 2017-01-13 13:48 | EMERGENCY ROOM VISIT NOTE ---
History First contact with patient: 13:32 Chief Complaint: ABDOMINAL PAIN Stated Complaint: UPPER BELLY PAIN History of Present Illness The patient is a 51 year old female who presents to the Emergency Room with complaints of abdominal pain. The patient reports a 3 hour history of RUQ pain that is 9/10, stabbing, radiating to her back between her shoulder blades. She has been following with a GI doctor in [place] and says she had a gallbladder study done on Wednesday that just came back positive. She thinks it may have been a HIDA scan. She complains of 6/10 chronic abdominal pain but today it is more severe and sharp in character. She complains of nausea but denies any vomiting, diarrhea, fever, chills, chest pain, or any other acute complaints. Review of Systems See HPI for pertinent positives and negatives. A total of ten systems were reviewed and were otherwise negative. Past Medical/Surgical History Medical Problems: (1) H/O emphysema Surgical Problems: (1) H/O: hysterectomy (2) Hx of BSO (bilateral salpingo-oophorectomy) Family History Cancer Diabetes mellitus Heart disease Hypertension Kidney disease Kidney stones Liver disease Lung disease Seizures Social History Smoking Status: Current Every Day Smoker Drug Use: none Marital Status: Housing Status: lives with family Occupation Status: unemployed Current/Historical Medications Scheduled Alum & Mag Hydrox-Simethicone (Mylanta), 1 DOSE PO TID Cholecalciferol (Vitamin D3), 2 TAB PO DAILY Citalopram Hydrobromide (Celexa), 40 MG PO DAILY Dicyclomine Hcl (Dicyclomine Hcl), 20 MG PO QID Fluticasone Propionate (Nasal) (Flonase Allergy Relief), 1 SPRAY NA DAILY Gabapentin (Neurontin), 200 MG PO TID Lorazepam (Lorazepam), 0.5 MG PO BID Mometasone Furoate-Formoterol (Dulera 200/5 Mcg), 1 AER INH BID Pantoprazole (Protonix), 40 MG PO BID Roflumilast (Daliresp), 1 TAB PO DAILY Sucralfate (Carafate), 1 GM PO ACHS Tamoxifen (Nolvadex), 20 MG PO HS Tiotropium [place] (Spiriva Handihaler), 1 CAP INH DAILY Topiramate (Topamax), 50 MG PO BID Venlafaxine Hcl (Venlafaxine Extended Rel), 1 CAP PO QAM Venlafaxine Hcl (Effexor Extended Rel), 1 CAP PO QAM Scheduled PRN Albuterol Hfa (Ventolin Hfa), 2-4 PUFFS INH Q6H PRN for SOB/Wheezing Allergies Coded Allergies: Adhesives (Verified Adverse Reaction, Mild, irritates skin, 01/13/17) Aspirin (Verified Adverse Reaction, Mild, iritates stomach, 01/13/17) Physical Exam Vital Signs Date Time Temp Pulse Resp B/P (MAP) Pulse Ox O2 Delivery O2 Flow Rate FiO2 01/13/17 14:44 84 22 122/73 98 01/13/17 13:14 36.7 133 20 104/65 97 Room Air Physical Exam GENERAL: Awake, alert, well-appearing, in no distress HENT: Normocephalic, atraumatic. Oropharynx unremarkable. EYES: Normal conjunctiva. Sclera non-icteric. NECK: Supple. No nuchal rigidity. RESPIRATORY: Clear to auscultation. CARDIAC: Regular rate, normal rhythm. Extremities warm and well perfused. Pulses equal. ABDOMEN: Soft, non-distended. RUQ tenderness to palpation. No rebound or guarding. RECTAL: Deferred. MUSCULOSKELETAL: Chest examination reveals no tenderness. The back is symmetrical on inspection without obvious abnormality. There is no CVA tenderness to palpation. No joint edema. LOWER EXTREMITIES: Calves are equal size bilaterally and non-tender. No edema. No discoloration. NEURO: Normal sensorium. No sensory or motor deficits noted. SKIN: No rash or jaundice noted. Medical Decision & Procedures Laboratory Results 01/13/17 14:20 Red Blood Count 4.03, Mean Corpuscular Volume 88.8, Mean Corpuscular Hemoglobin 29.3, Mean Corpuscular Hemoglobin Concent 33.0, Mean Platelet Volume 8.8, Neutrophils (%) (Auto) 72.8, Lymphocytes (%) (Auto) 21.2, Monocytes (%) (Auto) 5.0, Eosinophils (%) (Auto) 0.6, Basophils (%) (Auto) 0.1, Neutrophils # (Auto) 5.11, Lymphocytes # (Auto) 1.49, Monocytes # (Auto) 0.35, Eosinophils # (Auto) 0.04, Basophils # (Auto) 0.01 7/5/17 14:20 Test 01/13/17 14:20 White Blood Count 7.02 K/uL (4.8-10.8) Red Blood Count 4.03 M/uL (4.2-5.4) Hemoglobin 11.8 g/dL (12.0-16.0) Hematocrit 35.8 % (37-47) Mean Corpuscular Volume 88.8 fL (80-100) Mean Corpuscular Hemoglobin 29.3 pg (25-34) Mean Corpuscular Hemoglobin Concent 33.0 g/dl (32-36) Platelet Count 228 K/uL (130-400) Mean Platelet Volume 8.8 fL (7.4-10.4) Neutrophils (%) (Auto) 72.8 % Lymphocytes (%) (Auto) 21.2 % Monocytes (%) (Auto) 5.0 % Eosinophils (%) (Auto) 0.6 % Basophils (%) (Auto) 0.1 % Neutrophils # (Auto) 5.11 K/uL (1.4-6.5) Lymphocytes # (Auto) 1.49 K/uL (1.2-3.4) Monocytes # (Auto) 0.35 K/uL (0.11-0.59) Eosinophils # (Auto) 0.04 K/uL (0-0.5) Basophils # (Auto) 0.01 K/uL (0-0.2) RDW Standard Deviation 45.6 fL (36.4-46.3) RDW Coefficient of Variation 13.9 % (11.5-14.5) Immature Granulocyte % (Auto) 0.3 % Immature Granulocyte # (Auto) 0.02 K/uL (0.00-0.02) Urine Test NEG (NEG) Anion Gap 8.0 mmol/L (3-11) Est Creatinine Clear Calc Drug Dose 58.0 ml/min Estimated GFR () 115.5 Estimated GFR (Non- 99.6 BUN/Creatinine Ratio 13.9 (10-20) Calcium Level 8.7 mg/dl (8.5-10.1) Total Bilirubin 0.2 mg/dl (0.2-1) Direct Bilirubin < 0.1 mg/dl (0-0.2) Aspartate Amino Transf (AST/SGOT) 13 U/L (15-37) Alanine Aminotransferase (ALT/SGPT) 17 U/L (12-78) Alkaline Phosphatase 55 U/L (45-117) Total Protein 7.0 gm/dl (6.4-8.2) Albumin 3.4 gm/dl (3.4-5.0) Lipase 134 U/L (73-393) Medications Administered Medications (Trade) Dose Ordered Sig/Rosalino Route Start Time Stop Time Status Last Admin Dose Admin Prochlorperazine Edisylate (Compazine Inj) 5 mg NOW STAT IV 01/13/17 13:48 01/13/17 13:50 DC 01/13/17 14:40 5 MG Diphenhydramine HCl (Benadryl Inj) 12.5 mg NOW STAT IV 01/13/17 13:48 01/13/17 13:50 DC 01/13/17 14:40 12.5 MG Ondansetron HCl (Zofran Inj) 4 mg NOW STAT IV 01/13/17 13:48 01/13/17 13:50 DC 01/13/17 14:40 4 MG Ketorolac Tromethamine (Toradol Inj) 30 mg NOW STAT IV 01/13/17 13:48 01/13/17 13:50 DC 01/13/17 14:40 30 MG Medical Decision Patient is a 51 year old female that presents with a 3 hour history of abdominal pain Etiologies such as appendicitis, diverticulitis, obstruction, inflammatory bowel disease, renal colic, PUD, biliary pathology, pancreatitis, mesenteric ischemia, aortic pathology, infections, genitourinary, UTI, perforated viscus, as well as others were entertained. Labs ordered: CBC, BMP, Lipase, LFTs Medications: Zofran, Toradol, Compazine, Benadryl Impression Primary Impression: Right upper quadrant abdominal pain Patient is a 51 year old female that presents with RUQ pain - Patient reports feeling better after medications given to the patient - Patient instructed to follow up with General Surgeon for Gallbladder follow up in [facility] Information Dispostion Home / Self-Care Condition GOOD Referrals No Doctor, Assigned (PCP) Patient Instructions My [facility]
--- NOTE | 2017-01-13 13:52 | EMERGENCY ROOM VISIT NOTE ---
History Report prepared by Bekah: Duncan Brown Under the Supervision of: Dr. Yusef Banks M.D. First contact with patient: 13:32 Chief Complaint: ABDOMINAL PAIN Stated Complaint: UPPER BELLY PAIN History of Present Illness The patient is a 51 year old female who presents to the Emergency Room with complaints of worsening abdominal pain that started 3 hours ago. She says that she had a HIDA scan 2 days ago, and it showed that the problem was with her gallbladder. The patient is waiting for her surgeon to call her back from [place]. She states that she ate something earlier today that did not agree with her, and she now has abdominal pain that she rates as a 9 out of 10 in severity and describes as stabbing, which radiates to her back between her shoulder blades. The patient says that she is here for pain control. Source of History: patient Onset: 3 hours ago Position: abdomen Symptom Intensity: 9/10 Quality: stabbing Timing: worsening Associated Symptoms: + back pain Note: No other associated symptoms noted. Review of Systems See HPI for pertinent positives & negatives. A total of 10 systems reviewed and were otherwise negative. Past Medical & Surgical Medical Problems: (1) H/O emphysema Surgical Problems: (1) H/O: hysterectomy (2) Hx of BSO (bilateral salpingo-oophorectomy) Family History Cancer Diabetes mellitus Heart disease Hypertension Kidney disease Kidney stones Liver disease Lung disease Seizures Social History Smoking Status: Current Every Day Smoker Drug Use: none Marital Status: Housing Status: lives with family Occupation Status: unemployed Current/Historical Medications Scheduled Alum & Mag Hydrox-Simethicone (Mylanta), 1 DOSE PO TID Cholecalciferol (Vitamin D3), 2 TAB PO DAILY Citalopram Hydrobromide (Celexa), 40 MG PO DAILY Dicyclomine Hcl (Dicyclomine Hcl), 20 MG PO QID Fluticasone Propionate (Nasal) (Flonase Allergy Relief), 1 SPRAY NA DAILY Gabapentin (Neurontin), 200 MG PO TID Lorazepam (Lorazepam), 0.5 MG PO BID Mometasone Furoate-Formoterol (Dulera 200/5 Mcg), 1 AER INH BID Pantoprazole (Protonix), 40 MG PO BID Roflumilast (Daliresp), 1 TAB PO DAILY Sucralfate (Carafate), 1 GM PO ACHS Tamoxifen (Nolvadex), 20 MG PO HS Tiotropium [place] (Spiriva Handihaler), 1 CAP INH DAILY Topiramate (Topamax), 50 MG PO BID Venlafaxine Hcl (Venlafaxine Extended Rel), 1 CAP PO QAM Venlafaxine Hcl (Effexor Extended Rel), 1 CAP PO QAM Scheduled PRN Albuterol Hfa (Ventolin Hfa), 2-4 PUFFS INH Q6H PRN for SOB/Wheezing Allergies Coded Allergies: Adhesives (Verified Adverse Reaction, Mild, irritates skin, 01/13/17) Aspirin (Verified Adverse Reaction, Mild, iritates stomach, 01/13/17) Physical Exam Vital Signs Date Time Temp Pulse Resp B/P (MAP) Pulse Ox O2 Delivery O2 Flow Rate FiO2 01/13/17 15:27 83 16 110/72 98 Room Air 01/13/17 14:44 84 22 122/73 98 01/13/17 13:14 36.7 133 20 104/65 97 Room Air Physical Exam GENERAL: Patient is a healthy-appearing well-nourished 51 year old female. HEAD: Normocephalic atraumatic EYES: Ocular movements intact pupils equal and react to light OROPHARYNX mucous membranes are moist no exudates present no erythema or edema present NECK: Supple no nuchal rigidity CHEST: Good equal expansion LUNGS: Clear and equal to auscultation CARDIAC: Normal S1 and S2 ABDOMEN: Soft no guarding. Tender in right upper quadrant. BACK: No CVA tenderness EXTREMITIES: No pain upon palpation normal muscle strength in all groups no clubbing cyanosis or edema NEURO: Patient is following commands and answering questions appropriately. Alert and oriented x3 Cranial Nerves 2-12 grossly intact Medical Decision & Procedures Laboratory Results 01/13/17 14:20 Red Blood Count 4.03, Mean Corpuscular Volume 88.8, Mean Corpuscular Hemoglobin 29.3, Mean Corpuscular Hemoglobin Concent 33.0, Mean Platelet Volume 8.8, Neutrophils (%) (Auto) 72.8, Lymphocytes (%) (Auto) 21.2, Monocytes (%) (Auto) 5.0, Eosinophils (%) (Auto) 0.6, Basophils (%) (Auto) 0.1, Neutrophils # (Auto) 5.11, Lymphocytes # (Auto) 1.49, Monocytes # (Auto) 0.35, Eosinophils # (Auto) 0.04, Basophils # (Auto) 0.01 01/13/17 14:20 Test 01/13/17 14:20 White Blood Count 7.02 K/uL (4.8-10.8) Red Blood Count 4.03 M/uL (4.2-5.4) Hemoglobin 11.8 g/dL (12.0-16.0) Hematocrit 35.8 % (37-47) Mean Corpuscular Volume 88.8 fL (80-100) Mean Corpuscular Hemoglobin 29.3 pg (25-34) Mean Corpuscular Hemoglobin Concent 33.0 g/dl (32-36) Platelet Count 228 K/uL (130-400) Mean Platelet Volume 8.8 fL (7.4-10.4) Neutrophils (%) (Auto) 72.8 % Lymphocytes (%) (Auto) 21.2 % Monocytes (%) (Auto) 5.0 % Eosinophils (%) (Auto) 0.6 % Basophils (%) (Auto) 0.1 % Neutrophils # (Auto) 5.11 K/uL (1.4-6.5) Lymphocytes # (Auto) 1.49 K/uL (1.2-3.4) Monocytes # (Auto) 0.35 K/uL (0.11-0.59) Eosinophils # (Auto) 0.04 K/uL (0-0.5) Basophils # (Auto) 0.01 K/uL (0-0.2) RDW Standard Deviation 45.6 fL (36.4-46.3) RDW Coefficient of Variation 13.9 % (11.5-14.5) Immature Granulocyte % (Auto) 0.3 % Immature Granulocyte # (Auto) 0.02 K/uL (0.00-0.02) Urine Test NEG (NEG) Anion Gap 8.0 mmol/L (3-11) Est Creatinine Clear Calc Drug Dose 58.0 ml/min Estimated GFR () 115.5 Estimated GFR (Non- 99.6 BUN/Creatinine Ratio 13.9 (10-20) Calcium Level 8.7 mg/dl (8.5-10.1) Total Bilirubin 0.2 mg/dl (0.2-1) Direct Bilirubin < 0.1 mg/dl (0-0.2) Aspartate Amino Transf (AST/SGOT) 13 U/L (15-37) Alanine Aminotransferase (ALT/SGPT) 17 U/L (12-78) Alkaline Phosphatase 55 U/L (45-117) Total Protein 7.0 gm/dl (6.4-8.2) Albumin 3.4 gm/dl (3.4-5.0) Lipase 134 U/L (73-393) Labs reviewed by ED physician. Medications Administered Medications (Trade) Dose Ordered Sig/Rosalino Route Start Time Stop Time Status Last Admin Dose Admin Prochlorperazine Edisylate (Compazine Inj) 5 mg NOW STAT IV 01/13/17 13:48 01/13/17 13:50 DC 01/13/17 14:40 5 MG Diphenhydramine HCl (Benadryl Inj) 12.5 mg NOW STAT IV 01/13/17 13:48 01/13/17 13:50 DC 01/13/17 14:40 12.5 MG Ondansetron HCl (Zofran Inj) 4 mg NOW STAT IV 01/13/17 13:48 01/13/17 13:50 DC 01/13/17 14:40 4 MG Ketorolac Tromethamine (Toradol Inj) 30 mg NOW STAT IV 01/13/17 13:48 01/13/17 13:50 DC 01/13/17 14:40 30 MG ED Course 1348: Ordered Toradol Inj 30 mg IV, Zofran Inj 4 mg IV, Benadryl Inj 12.5 mg IV , Compazine Inj 5 mg IV. 1403: Past medical records reviewed. The patient was evaluated in room B10. A complete history and physical examination was performed. 1520: Upon reexamination the patient is resting. I discussed results and treatment plan with the patient. She verbalizes agreement and understanding. The patient is ready for discharge. Medical Decision Differential diagnosis: Etiologies such as appendicitis, diverticulitis, PUD, biliary pathology, UTI, pancreatitis, obstruction, mesenteric ischemia, aortic pathology, infections, inflammatory bowel disease, renal colic, as well as others were entertained. Blood Pressure Screening: Patient was found to have normal blood pressure on screening and does not require follow up. Medication Reconciliation: I attest that I have personally reviewed the patient' s current medication list Resident Physician Supervision Note: I interviewed and examined the patient. Discussed with Dr. Wilkins and agree with findings and plan as documented in the note. Documented By: Yusef Banks Impression Primary Impression: Right upper quadrant abdominal pain Scribe Attestation The scribe's documentation has been prepared under my direction and personally reviewed by me in its entirety. I confirm that the note above accurately reflects all work, treatment, procedures, and medical decision making performed by me. Departure Information Dispostion Home / Self-Care Referrals No Doctor, Assigned (PCP) Patient Instructions My [facility] Additional Instructions - Follow up with your primary care physician in the next 1-2 days - Follow up with your surgeon in [place] for further evaluation of your Gallbladder Disease - If you present with any concerning symptoms including worsening pain, vomiting , fever, chills, or any other concerning symptoms please return to the emergency department or be evaluated by a physician
[2017-01-13 14:40] LABS: BASO % 0.1 %; BASO ABS # 0.01 K/uL (0-0.2); COMPLETE YES; EOS % 0.6 %; HEMATOCRIT 35.8 % (37-47); IG% 0.3 %; LYMPH % 21.2 %; LYMPH ABS # 1.49 K/uL (1.2-3.4); MEAN CELL VOLUME 88.8 fL (80-100); MEAN CORPUSCULAR HEMOGLOBIN 29.3 pg (25-34); MEAN PLATELET VOLUME 8.8 fL (7.4-10.4); NEUT % 72.8 %; PLATELET COUNT 228 K/uL (130-400); RED BLOOD COUNT 4.03 M/uL (4.2-5.4); WHITE BLOOD COUNT 7.02 K/uL (4.8-10.8)
[2017-01-13 14:57] LABS: ALT/SGPT 17 U/L (12-78); BLOOD UREA NITROGEN 10 mg/dl (7-18); BUN/CREATININE RATIO 13.9 (10-20); CALCIUM 8.7 mg/dl (8.5-10.1); CARBON DIOXIDE 22 mmol/L (21-32); CHLORIDE 111 mmol/L (98-107); GLUCOSE 78 mg/dl (70-99); POTASSIUM 3.8 mmol/L (3.5-5.1); SODIUM 141 mmol/L (136-145)
[2017-01-13 15:05] LABS: ALKALINE PHOSPHATASE 55 U/L (45-117); AST/SGOT 13 U/L (15-37)
[2017-01-13 15:27] VITALS: BP 110/72; PULSE 83; O2SAT 98
== END 2017-01-13 15:50 | disposition home or self-care (01) ==
LOC: C.EDB 13:13
DX: R10.11 Right upper quadrant pain (principal); J43.9 Emphysema, unspecified; F17.200 Nicotine dependence, unspecified, uncomplicated; Z90.710 Acquired absence of both cervix and uterus; Z90.79 Acquired absence of other genital organ(s); Z90.722 Acquired absence of ovaries, bilateral; Z83.3 Family history of diabetes mellitus; Z82.49 Family history of ischemic heart disease and other diseases of the circulatory system; Z84.1 Family history of disorders of kidney and ureter; Z82.0 Family history of epilepsy and other diseases of the nervous system

== ENCOUNTER 2017-02-16 11:44 | Emergency (ER) | payer OTHER ==
[~2017-02-16] VITALS: Ht 157.5 cm; Wt 40.1 kg
[2017-02-16 11:59] VITALS: TEMP 36.9; Ht 157.5 cm; Wt 40.1 kg
[2017-02-16] MEDS ORDERED: HYDROmorphone INJ 0.5 MG/0.5 ML SYR IV STA ×2 (12:47→13:53)
[2017-02-16] MEDS ORDERED: SODIUM CHLORIDE 0.9% 1000ML 1,000 ML IV STA (12:47)
[2017-02-16] MEDS ORDERED: KETOROLAC TROMETHAMINE 30 MG/ML VIAL IV STA (12:47)
[2017-02-16] MEDS ORDERED: ONDANSETRON INJ 2 MG/ML 2 ML VIAL IV STA (12:47)
[2017-02-16 13:08] LABS: URINE APPEARANCE CLEAR (CLEAR); URINE BILIRUBIN NEG (NEG); URINE COLOR YELLOW; URINE NITRITE NEG (NEG); URINE PH 7.5 (4.5-7.5); URINE SPECIFIC GRAVITY 1.015 (1.000-1.030); UROBILINOGEN NEG (NEG)
[2017-02-16 13:15] LABS: MANUAL MICROSCOPIC REQUIRED? NO; REVIEW REQ? NO
[2017-02-16 13:34] LABS: HEMATOCRIT 35.4 % (37-47); MEAN CELL VOLUME 87.8 fL (80-100); MEAN CORPUSCULAR HEMOGLOBIN 29.3 pg (25-34); MEAN CORPUSCULAR HGB CONC 33.3 g/dl (32-36); PLATELET COUNT 255 K/uL (130-400); RED BLOOD COUNT 4.03 M/uL (4.2-5.4); WHITE BLOOD COUNT 5.62 K/uL (4.8-10.8)
--- NOTE | 2017-02-16 13:50 | DIAGNOSTIC IMAGING REPORT ---
CT SCAN OF THE ABDOMEN AND PELVIS WITHOUT CONTRAST CLINICAL HISTORY: Right flank pain COMPARISON STUDY: 12/02/2016 TECHNIQUE: CT scan of the abdomen and pelvis was performed from the lung bases to the proximal femurs. Images are reviewed in the axial, sagittal, and coronal planes. IV contrast was not administered for this examination. A dose lowering technique was utilized adhering to the principles of ALARA. CT DOSE: 245.54 mGy.cm FINDINGS: Lower chest: There is underlying emphysema. Liver: The unenhanced liver is normal in size, contour, and attenuation. There is no intrahepatic biliary ductal dilatation. Gallbladder: Surgically absent Spleen: Normal in size and attenuation. Pancreas: Unremarkable. Adrenal glands: Unremarkable. Kidneys: No renal, ureteral, or bladder calculi are visualized. Bowel: Evaluation the bowel is limited given the lack of intravenous and oral contrast. There are no transition zones indicate bowel obstruction. There is mild fecal retention. There is no acute diverticulitis. The appendix is not visualized with certainty. No pericecal inflammatory changes are visualized. Peritoneum: There is no intraperitoneal free air or abdominal ascites. Vasculature: The abdominal aorta is normal in course and caliber. Adenopathy: None. Pelvic viscera: The uterus appears surgically absent Skeletal structures: No destructive osseous lesions are seen. IMPRESSION: 1. No renal, ureteral, or bladder calculi identified 2. No evidence of bowel obstruction. No evidence of free air. Electronically signed by: Yamil Harris M.D. 02/16/2017 1:49 PM Dictated Date/Time: 02/16/2017 1:45 PM
[2017-02-16 13:55] LABS: ALT/SGPT 19 U/L (12-78); AST/SGOT 16 U/L (15-37); BLOOD UREA NITROGEN 9 mg/dl (7-18); BUN/CREATININE RATIO 15.7 (10-20); CALCIUM 8.3 mg/dl (8.5-10.1); CARBON DIOXIDE 23 mmol/L (21-32); CHLORIDE 113 mmol/L (98-107); GLUCOSE 69 mg/dl (70-99); POTASSIUM 3.7 mmol/L (3.5-5.1); SODIUM 142 mmol/L (136-145)
[2017-02-16 13:58] LABS: ALKALINE PHOSPHATASE 56 U/L (45-117)
[2017-02-16 14:01] LABS: BASO % 0.2 %; BASO ABS # 0.01 K/uL (0-0.2); COMPLETE YES; EOS % 0.7 %; IG% 0.4 %; LYMPH % 26.5 %; LYMPH ABS # 1.49 K/uL (1.2-3.4); MONO % 4.4 %; NEUT % 67.8 %
--- NOTE | 2017-02-16 14:12 | EMERGENCY ROOM VISIT NOTE ---
History Report prepared by Bekah: Trevor Holbrook Under the Supervision of: Dr. Yusef Banks M.D. First contact with patient: 12:43 Chief Complaint: BACK PAIN Stated Complaint: PAIN IN LWR RT SIDE IN BACK History of Present Illness The patient is a 51 year old female who presents to the Emergency Room with complaints of waxing and waning right lower back pain beginning three days ago. She has a history of similar pain, but has never received a diagnosis. She has received imaging on her back before. The patient also complains of urinary symptoms, and right sided abdominal pain. She had a cholecystectomy three weeks ago. Nothing has improved her symptoms. Source of History: patient Onset: Three days ago Position: back (lower right) Timing: waxes/wanes Modifying Factors (Relieving): other (none) Associated Symptoms: + abdominal pain (right side), + urinary symptoms Review of Systems See HPI for pertinent positives & negatives. A total of 10 systems reviewed and were otherwise negative. Past Medical & Surgical Medical Problems: (1) H/O emphysema Surgical Problems: (1) H/O: hysterectomy (2) Hx of BSO (bilateral salpingo-oophorectomy) Family History Cancer Diabetes mellitus Heart disease Hypertension Kidney disease Kidney stones Liver disease Lung disease Seizures Social History Smoking Status: Current Every Day Smoker Drug Use: none Marital Status: Housing Status: lives with family Occupation Status: unemployed Current/Historical Medications Scheduled Alum & Mag Hydrox-Simethicone (Mylanta), 1 DOSE PO TID Cholecalciferol (Vitamin D3), 2 TAB PO DAILY Citalopram Hydrobromide (Celexa), 40 MG PO DAILY Dicyclomine Hcl (Dicyclomine Hcl), 20 MG PO QID Fluticasone Propionate (Nasal) (Flonase Allergy Relief), 1 SPRAY NA DAILY Gabapentin (Neurontin), 200 MG PO TID Lorazepam (Lorazepam), 0.5 MG PO BID Mometasone Furoate-Formoterol (Dulera 200/5 Mcg), 1 AER INH BID Pantoprazole (Protonix), 40 MG PO BID Roflumilast (Daliresp), 1 TAB PO DAILY Sucralfate (Carafate), 1 GM PO ACHS Tamoxifen (Nolvadex), 20 MG PO HS Tiotropium [place] (Spiriva Handihaler), 1 CAP INH DAILY Topiramate (Topamax), 50 MG PO BID Venlafaxine Hcl (Venlafaxine Extended Rel), 1 CAP PO QAM Venlafaxine Hcl (Effexor Extended Rel), 1 CAP PO QAM Scheduled PRN Albuterol Hfa (Ventolin Hfa), 2-4 PUFFS INH Q6H PRN for SOB/Wheezing Oxycodone/Acetaminophen 5MG/325MG (Percocet 5MG/325MG), 1-2 TAB PO Q4H PRN for Pain Allergies Coded Allergies: Adhesives (Verified Adverse Reaction, Mild, irritates skin, 01/13/17) Aspirin (Verified Adverse Reaction, Mild, iritates stomach, 01/13/17) Physical Exam Vital Signs Date Time Temp Pulse Resp B/P (MAP) Pulse Ox O2 Delivery O2 Flow Rate FiO2 02/16/17 14:30 96 139/95 97 02/16/17 13:54 86 16 138/99 99 Room Air 02/16/17 11:59 36.9 122 20 136/89 97 Room Air Physical Exam GENERAL: Patient is a healthy-appearing well-nourished female HEAD: Normocephalic atraumatic EYES: Ocular movements intact pupils equal and react to light OROPHARYNX mucous membranes are moist no exudates present no erythema or edema present NECK: Supple no nuchal rigidity CHEST: Good equal expansion LUNGS: Clear and equal to auscultation CARDIAC: Normal S1 and S2 ABDOMEN: Soft nontender no guarding BACK: No CVA tenderness EXTREMITIES: No pain upon palpation normal muscle strength in all groups no clubbing cyanosis or edema NEURO: Patient is following commands and answering questions appropriately. Alert and oriented x3 Cranial Nerves 2-12 grossly intact Medical Decision & Procedures ER Provider Diagnostic Interpretation: CT results as stated below per my review and radiologist interpretation: CT SCAN OF THE ABDOMEN AND PELVIS WITHOUT CONTRAST FINDINGS: Lower chest: There is underlying emphysema. Liver: The unenhanced liver is normal in size, contour, and attenuation. There is no intrahepatic biliary ductal dilatation. Gallbladder: Surgically absent Spleen: Normal in size and attenuation. Pancreas: Unremarkable. Adrenal glands: Unremarkable. Kidneys: No renal, ureteral, or bladder calculi are visualized. Bowel: Evaluation the bowel is limited given the lack of intravenous and oral contrast. There are no transition zones indicate bowel obstruction. There is mild fecal retention. There is no acute diverticulitis. The appendix is not visualized with certainty. No pericecal inflammatory changes are visualized. Peritoneum: There is no intraperitoneal free air or abdominal ascites. Vasculature: The abdominal aorta is normal in course and caliber. Adenopathy: None. Pelvic viscera: The uterus appears surgically absent Skeletal structures: No destructive osseous lesions are seen. IMPRESSION: 1. No renal, ureteral, or bladder calculi identified 2. No evidence of bowel obstruction. No evidence of free air. Electronically signed by: Yamil Harris M.D. Laboratory Results 02/16/17 13:15 Red Blood Count 4.03, Mean Corpuscular Volume 87.8, Mean Corpuscular Hemoglobin 29.3, Mean Corpuscular Hemoglobin Concent 33.3, Mean Platelet Volume 9.0, Neutrophils (%) (Auto) 67.8, Lymphocytes (%) (Auto) 26.5, Monocytes (%) (Auto) 4.4, Eosinophils (%) (Auto) 0.7, Basophils (%) (Auto) 0.2, Neutrophils # (Auto) 3.81, Lymphocytes # (Auto) 1.49, Monocytes # (Auto) 0.25, Eosinophils # (Auto) 0.04, Basophils # (Auto) 0.01 02/16/17 13:15 Test 02/16/17 12:50 02/16/17 13:15 Urine Color YELLOW Urine Appearance CLEAR (CLEAR) Urine pH 7.5 (4.5-7.5) Urine Specific [place] 1.015 (1.000-1.030) Urine Protein NEG (NEG) Urine Glucose (UA) NEG (NEG) Urine Ketones NEG (NEG) Urine Occult Blood NEG (NEG) Urine Nitrite NEG (NEG) Urine Bilirubin NEG (NEG) Urine Urobilinogen NEG (NEG) Urine Leukocyte Esterase NEG (NEG) White Blood Count 5.62 K/uL (4.8-10.8) Red Blood Count 4.03 M/uL (4.2-5.4) Hemoglobin 11.8 g/dL (12.0-16.0) Hematocrit 35.4 % (37-47) Mean Corpuscular Volume 87.8 fL (80-100) Mean Corpuscular Hemoglobin 29.3 pg (25-34) Mean Corpuscular Hemoglobin Concent 33.3 g/dl (32-36) Platelet Count 255 K/uL (130-400) Mean Platelet Volume 9.0 fL (7.4-10.4) Neutrophils (%) (Auto) 67.8 % Lymphocytes (%) (Auto) 26.5 % Monocytes (%) (Auto) 4.4 % Eosinophils (%) (Auto) 0.7 % Basophils (%) (Auto) 0.2 % Neutrophils # (Auto) 3.81 K/uL (1.4-6.5) Lymphocytes # (Auto) 1.49 K/uL (1.2-3.4) Monocytes # (Auto) 0.25 K/uL (0.11-0.59) Eosinophils # (Auto) 0.04 K/uL (0-0.5) Basophils # (Auto) 0.01 K/uL (0-0.2) RDW Standard Deviation 45.6 fL (36.4-46.3) RDW Coefficient of Variation 14.1 % (11.5-14.5) Immature Granulocyte % (Auto) 0.4 % Immature Granulocyte # (Auto) 0.02 K/uL (0.00-0.02) Anion Gap 6.0 mmol/L (3-11) Est Creatinine Clear Calc Drug Dose 69.4 ml/min Estimated GFR () 121.5 Estimated GFR (Non- 104.8 BUN/Creatinine Ratio 15.7 (10-20) Calcium Level 8.3 mg/dl (8.5-10.1) Total Bilirubin 0.4 mg/dl (0.2-1) Direct Bilirubin < 0.1 mg/dl (0-0.2) Aspartate Amino Transf (AST/SGOT) 16 U/L (15-37) Alanine Aminotransferase (ALT/SGPT) 19 U/L (12-78) Alkaline Phosphatase 56 U/L (45-117) Total Protein 6.9 gm/dl (6.4-8.2) Albumin 3.4 gm/dl (3.4-5.0) Lipase 223 U/L (73-393) Labs reviewed by ED physician. Medications Administered Medications (Trade) Dose Ordered Sig/Rosalino Route Start Time Stop Time Status Last Admin Dose Admin Sodium Chloride 1,000 ml @ 999 mls/hr Q1H1M STAT IV 02/16/17 12:47 02/16/17 13:47 DC 02/16/17 13:19 999 MLS/HR Ketorolac Tromethamine (Toradol Inj) 30 mg NOW STAT IV 02/16/17 12:47 02/16/17 12:49 DC 02/16/17 13:20 30 MG Hydromorphone HCl (Dilaudid Inj) 0.5 mg NOW STAT IV 02/16/17 12:47 02/16/17 12:49 DC 02/16/17 13:20 0.5 MG Ondansetron HCl (Zofran Inj) 4 mg NOW STAT IV 02/16/17 12:47 02/16/17 12:49 DC 02/16/17 13:20 4 MG Hydromorphone HCl (Dilaudid Inj) 0.5 mg NOW STAT IV 02/16/17 13:53 02/16/17 13:54 DC 02/16/17 14:11 0.5 MG ED Course 1244: Past medical records reviewed. The patient was evaluated in room B11A. A complete history and physical examination was performed. 1247: Ordered Zofran Inj 4 mg IV, Dilaudid Inj 0.5 mg IV, Toradol Inj 30 mg IV, Sodium Chloride 1000 ml @ 999 mls/hr IV. 1353: Ordered Dilaudid Inj 0.5 mg IV. 1415: Upon reexamination the patient is resting comfortably. I discussed results and treatment plan with the patient. She verbalizes agreement and understanding. The patient is ready for discharge. Medical Decision Differential diagnosis: Etiologies such as musculoskeletal, disc herniation, fracture, aortic disease, metastatic disease, cord compression, discitis, infection, renal colic, gastrointestinal, acute exacerbation of chronic back pain, sciatica, cauda equina, as well as others were entertained. This is a 51-year-old female who presents emergency department complaining of right-sided flank pain. Serial abdominal examinations were performed on the patient in the emergency department and at no time did the patient exhibit abdominal tenderness on examination or surgical abdomen. She was sent for CAT scan of the abdomen pelvis however there is no evidence of acute process. The patient does appear to be constipated therefore I recommended magnesium citrate cleanout. While in the emergency department an IV was established, the patient was given Dilaudid, Zofran. Repeat examination revealed improvement the patient 's symptoms. I do feel that the patient is well enough to be discharged home for follow-up with her primary care physician. Patient was in agreement with the treatment plan. Medication Reconcilliation Current Medication List: was personally reviewed by me Blood Pressure Screening Patient's blood pressure: Elevated blood pressure Blood pressure disposition: Referred to PCP Impression Primary Impression: Flank pain Additional Impression: Constipation Scribe Attestation The scribe's documentation has been prepared under my direction and personally reviewed by me in its entirety. I confirm that the note above accurately reflects all work, treatment, procedures, and medical decision making performed by me. Departure Information Dispostion Home / Self-Care Prescriptions Oxycodone/Acetaminophen 5MG/325MG (PERCOCET 5MG/325MG) Tab 1-2 TAB PO Q4H Y for Pain, #14 TAB Prov: Yusef Banks MD 02/16/17 Referrals No Doctor, Assigned (PCP) Forms HOME CARE DOCUMENTATION FORM, IMPORTANT VISIT INFORMATION Patient Instructions ED Flank Pain Uncertain Cause, My [facility] Additional Instructions Take 10 oz bottle of miralax; Add to 16 oz of gatorade Drink continuously until moving creamy stools Clear liquid diet for next 48 hours Return if you develop fevers or pain worsens You were found to have an elevated blood pressure today (>120 sytolic or >90 diastolic). Per medicare guidelines, you need to follow up with this blood pressure screening with your Primary Care Physician (PCP). For a new PCP call [phone]. You received narcotic or benzodiazepene medication while in the emergency room today. Do not drive, operate heavy machinery, or drink alcohol under the influence of this medication. Take 600 mg Ibuprofen every 6 hours Take Percocet for breakthrough pain Culture results are usually available in approx 48 hours You have been examined and treated today on an emergency basis only. This is not a substitute for, or an effort to provide, complete comprehensive medical care. It is impossible to recognize and treat all injuries or illnesses in a single emergency department visit. It is therefore important that you follow up closely with your PCP. Call as soon as possible for an appointment. Thank you for your time and consideration. I look forward to speaking with you again soon. Please don't hesitate to call us if you have any questions. Problem Qualifiers Additional Impression: Constipation Constipation type: unspecified constipation type Qualified Codes: K59.00 - Constipation, unspecified
[2017-02-16] MEDS ORDERED: OXYC-57 PO (14:18)
[2017-02-16 14:30] VITALS: BP 139/95; PULSE 96; O2SAT 97
== END 2017-02-16 14:32 | disposition home or self-care (01) ==
LOC: C.EDB 11:45
DX: R10.9 Unspecified abdominal pain (principal); K59.00 Constipation, unspecified; Z83.3 Family history of diabetes mellitus; Z82.49 Family history of ischemic heart disease and other diseases of the circulatory system; Z82.0 Family history of epilepsy and other diseases of the nervous system; F17.200 Nicotine dependence, unspecified, uncomplicated

== ENCOUNTER 2017-02-21 14:38 | Emergency (ER) | payer OTHER ==
[~2017-02-21] VITALS: Ht 157.5 cm; Wt 38.5 kg
[~2017-02-21 14:38] MED LIST changes: +OXYC-57 PO
[2017-02-21 14:44] VITALS: TEMP 36.6; Ht 157.5 cm; Wt 38.5 kg
[2017-02-21] MEDS ORDERED: ONDANSETRON 8 MG/54 ML D5W IV STA (15:01)
[2017-02-21] MEDS ORDERED: ALUMINUM/MAGNESIUM SUSP 30 ML UDC PO STA (15:01)
[2017-02-21] MEDS ORDERED: SODIUM CHLORIDE 0.9% 1000ML 1,000 ML IV STA (15:01)
[2017-02-21] MEDS ORDERED: FENTANYL CITRATE INJ 50 MCG/1 ML 2 ML VIAL IV STA (15:01)
--- NOTE | 2017-02-21 15:08 | EMERGENCY ROOM VISIT NOTE ---
History Report prepared by Bekah: Hari Izquierdo Under the Supervision of: Dr. Tamia Valentin D.O. First contact with patient: 14:48 Chief Complaint: GI ASSESSMENT Stated Complaint: PAIN BTWN SHOULDER BLADES AND ABOVE BELLY BUTTON Nursing Triage Summary: Patient c/o pain between shoulder blades and upper mid abdomen that began about noon. Gall bladder removed 3 weeks ago. Ate something greasy. History of Present Illness The patient is a 51 year old female who presents to the Emergency Room with complaints of RUQ abdominal pain that began 3 hours ago. She rates her pain an 8 /10 in severity. The patient received a cholecystectomy 3 weeks ago. There were no complications with the procedure and her follow up appointment with her surgeon was normal as well. About twenty minutes before the pain began, the patient ate greasy food. Her pain began radiates to in between her shoulder blades, but then progressed to her RUQ. Her last bowel movement was normal this am. She denies any vomiting or abnormal urinary symptoms. She is currently nauseated. She has a past medical history of a hysterectomy, small hiatal hernia , and GERD. She denies any history of stomach ulcers, bowel history, or cardiac history. She takes Carafate regularly. She also took Tylenol KNEE BOLTER. She states she has been doing well and healing since her surgery. States this week she was slowly reintroducing other foods again. Source of History: patient Onset: 3 hours ago Position: abdomen (RUQ) Symptom Intensity: 8/10 Quality: ache Timing: constant Modifying Factors (Worsening): eating Associated Symptoms: + nausea, No vomiting, No urinary symptoms Review of Systems See HPI for pertinent positives & negatives. A total of 10 systems reviewed and were otherwise negative. Past Medical & Surgical Medical Problems: (1) H/O emphysema Surgical Problems: (1) H/O: hysterectomy (2) Hx of BSO (bilateral salpingo-oophorectomy) Family History Cancer Diabetes mellitus Heart disease Hypertension Kidney disease Kidney stones Liver disease Lung disease Seizures Social History Smoking Status: Current Every Day Smoker Drug Use: none Marital Status: Housing Status: lives with family Occupation Status: unemployed Current/Historical Medications Scheduled Cholecalciferol (Vitamin D3), 2 TAB PO DAILY Citalopram Hydrobromide (Celexa), 40 MG PO DAILY Dicyclomine Hcl (Dicyclomine Hcl), 20 MG PO QID Fluticasone Propionate (Nasal) (Flonase Allergy Relief), 1 SPRAY NA DAILY Gabapentin (Neurontin), 200 MG PO TID Lorazepam (Lorazepam), 0.5 MG PO BID Mometasone Furoate-Formoterol (Dulera 200/5 Mcg), 1 AER INH BID Pantoprazole (Protonix), 40 MG PO BID Roflumilast (Daliresp), 1 TAB PO DAILY Sucralfate (Carafate), 1 GM PO ACHS Tamoxifen (Nolvadex), 20 MG PO HS Tiotropium [place] (Spiriva Handihaler), 1 CAP INH DAILY Topiramate (Topamax), 50 MG PO BID Venlafaxine Hcl (Venlafaxine Extended Rel), 1 CAP PO QAM Venlafaxine Hcl (Effexor Extended Rel), 1 CAP PO QAM Scheduled PRN Albuterol Hfa (Ventolin Hfa), 2-4 PUFFS INH Q6H PRN for SOB/Wheezing Oxycodone/Acetaminophen 5MG/325MG (Percocet 5MG/325MG), 1-2 TAB PO Q4H PRN for Pain Allergies Coded Allergies: Adhesives (Verified Adverse Reaction, Mild, irritates skin, 01/13/17) Aspirin (Verified Adverse Reaction, Mild, iritates stomach, 01/13/17) Physical Exam Vital Signs Date Time Temp Pulse Resp B/P (MAP) Pulse Ox O2 Delivery O2 Flow Rate FiO2 02/21/17 19:47 73 18 118/65 99 02/21/17 17:26 82 18 126/64 98 Room Air 02/21/17 14:44 36.6 127 20 99/68 97 Room Air Physical Exam GENERAL: alert, well appearing, very thin body habitus, no distress, non-toxic EYE EXAM: normal conjunctiva, PERRL and EOM's grossly intact OROPHARYNX: no exudate, no erythema, lips, buccal mucosa, and tongue normal and mucous membranes are dry NECK: supple, no nuchal rigidity, no adenopathy, non-tender LUNGS: Decreased breath sounds. No wheezes, rhonchi, or rales. Normal chest wall mechanics HEART: no murmurs, S1 normal and S2 normal ABDOMEN: abdomen soft, with mid epigastrium tenderness to palpation, normo- active bowel sounds, no masses, no rebound or guarding. No organomegaly. BACK: Back is symmetrical on inspection and there is no deformity, no midline tenderness, no CVA tenderness. Upper thoracic bilateral perispinal muscle tenderness. No step off. SKIN: no rashes and no bruising UPPER EXTREMITIES: upper extremities are grossly normal. LOWER EXTREMITIES: No pitting edema. NEURO EXAM: Normal sensorium, cranial nerves II-XII grossly intact, normal speech, no gross weakness of arms, no gross weakness of legs. Medical Decision & Procedures ER Provider Diagnostic Interpretation: Radiology results have been interpreted by the radiologist and reviewed by me. PA CHEST RADIOGRAPH AND UPRIGHT AND SUPINE AP RADIOGRAPHS OF THE ABDOMEN CLINICAL HISTORY: Epigastric pain. COMPARISON STUDY: Chest radiograph June 07, [address] of the abdomen and pelvis February 16, 2017. FINDINGS: Several calcified left lung nodules are noted. Left apical opacity favors scarring. There may be scarring within the right lung apex as well. There are old right rib fractures. Cardiomediastinal silhouette is normal. There is no free air. Cholecystectomy clips are present. Calcified granulomas within the spleen are noted. IMPRESSION: 1. No free air or evidence of bowel obstruction. 2. No acute cardiopulmonary findings. Electronically signed by: Henri Salcedo M.D. 02/21/2017 4:16 PM Dictated Date/Time: 02/21/2017 4:13 PM Laboratory Results 02/21/17 15:20 Red Blood Count 4.12, Mean Corpuscular Volume 87.9, Mean Corpuscular Hemoglobin 30.1, Mean Corpuscular Hemoglobin Concent 34.3, Mean Platelet Volume 8.9, Neutrophils (%) (Auto) 63.8, Lymphocytes (%) (Auto) 28.1, Monocytes (%) (Auto) 6.8, Eosinophils (%) (Auto) 0.7, Basophils (%) (Auto) 0.2, Neutrophils # (Auto) 3.56, Lymphocytes # (Auto) 1.57, Monocytes # (Auto) 0.38, Eosinophils # (Auto) 0.04, Basophils # (Auto) 0.01 02/21/17 15:20 Test 02/21/17 15:20 White Blood Count 5.58 K/uL (4.8-10.8) Red Blood Count 4.12 M/uL (4.2-5.4) Hemoglobin 12.4 g/dL (12.0-16.0) Hematocrit 36.2 % (37-47) Mean Corpuscular Volume 87.9 fL (80-100) Mean Corpuscular Hemoglobin 30.1 pg (25-34) Mean Corpuscular Hemoglobin Concent 34.3 g/dl (32-36) Platelet Count 244 K/uL (130-400) Mean Platelet Volume 8.9 fL (7.4-10.4) Neutrophils (%) (Auto) 63.8 % Lymphocytes (%) (Auto) 28.1 % Monocytes (%) (Auto) 6.8 % Eosinophils (%) (Auto) 0.7 % Basophils (%) (Auto) 0.2 % Neutrophils # (Auto) 3.56 K/uL (1.4-6.5) Lymphocytes # (Auto) 1.57 K/uL (1.2-3.4) Monocytes # (Auto) 0.38 K/uL (0.11-0.59) Eosinophils # (Auto) 0.04 K/uL (0-0.5) Basophils # (Auto) 0.01 K/uL (0-0.2) RDW Standard Deviation 44.7 fL (36.4-46.3) RDW Coefficient of Variation 14.0 % (11.5-14.5) Immature Granulocyte % (Auto) 0.4 % Immature Granulocyte # (Auto) 0.02 K/uL (0.00-0.02) Red Blood Cell Morphology Unremarkable Anion Gap 9.0 mmol/L (3-11) Est Creatinine Clear Calc Drug Dose 54.0 ml/min Estimated GFR () 108.0 Estimated GFR (Non- 93.1 BUN/Creatinine Ratio 13.9 (10-20) Lactic Acid Level 0.8 mmol/L (0.4-2.0) Calcium Level 8.2 mg/dl (8.5-10.1) Total Bilirubin 0.4 mg/dl (0.2-1) Aspartate Amino Transf (AST/SGOT) 13 U/L (15-37) Alanine Aminotransferase (ALT/SGPT) 22 U/L (12-78) Alkaline Phosphatase 58 U/L (45-117) Troponin I < 0.015 ng/ml (0-0.045) Total Protein 7.3 gm/dl (6.4-8.2) Albumin 3.6 gm/dl (3.4-5.0) Globulin 3.7 gm/dl (2.5-4.0) Albumin/Globulin Ratio 1.0 (0.9-2) Lipase 169 U/L (73-393) Laboratory results per my review. Medications Administered Medications (Trade) Dose Ordered Sig/Rosalino Route Start Time Stop Time Status Last Admin Dose Admin Sodium Chloride 1,000 ml @ 999 mls/hr Q1H1M STAT IV 02/21/17 15:01 02/21/17 16:01 DC 02/21/17 15:34 999 MLS/HR Ondansetron HCl (Zofran 8mg Iv) 8 mg NOW STAT IV 02/21/17 15:01 02/21/17 15:03 DC 02/21/17 15:37 8 MG Al Hydroxide/Mg Hydroxide (Maalox Susp) 15 ml NOW STAT PO 02/21/17 15:01 02/21/17 15:03 DC 02/21/17 15:36 15 ML Fentanyl Citrate (Fentanyl Inj) 25 mcg NOW STAT IV 02/21/17 15:01 02/21/17 15:03 DC 02/21/17 15:37 25 MCG Pantoprazole Sodium 40 mg/ Syringe 10 ml @ 5 mls/min NOW ONCE IV 02/21/17 17:00 02/21/17 17:01 DC 02/21/17 17:26 5 MLS/MIN ECG Indication: abdominal pain Rate (beats per minute): 94 Rhythm: sinus rhythm Findings: PVC, no acute ischemic change, other (Normal intervals, normal axis) ED Course 1448: The patient was evaluated in room B9. A complete history and physical exam was performed. 1501: Ordered Fentanyl Inj 25 mcg IV, Maalox Susp 15 ml PO, Zofran 8mg Iv 8 mg IV, Sodium Chloride 1000 ml @ 999 mls/hr IV 1646: The patient's abdominal pain is now gone. However, she is still having pain between her shoulder blades. 1700: Pantoprazole Sodium 40 mg/Syringe 10 ml @ 5 mls/min IV 1801: After reassessment, her pain has improved. We will try to do a PO challenge. 1930: Upon reevaluation, the patient is feeling better. She tolerated the PO challenge. She denies any reoccurrence of symptoms. I discussed the findings and the treatment plan with the patient. She verbalizes agreement and understanding. She was discharged home. Medical Decision Differential diagnoses includes but is not limited to gastritis, peptic ulcer disease, GERD, gallbladder disease, pancreatitis, small bowel obstruction, acute coronary syndrome, pericarditis, ischemic bowel, irritable bowel disease, irritable bowel syndrome, appendicitis, diverticulitis, malignancy, hernia, urinary tract infection, torsion, perforation, trauma, infectious. Given onset of sx 25 min after eating greasy food and no sx otw in the last several weeks post surgery, doubt cardiac or pulmonary etiology. Likely related to GI/food. Pt improved here with GI meds. Small initial dose of fentanyl given, no additional doses. Pt able to tolerate po here without any recurrent symptoms. No chest pain/sob. EKG unremarkable. Imaging unremarkable. Discussed f/u with PCP as a precaution. Doubt post op complication. Doubt post op infection. Doubt perforation, gi bleed, sbo, dissection, aaa, bacteremia/sepsis. Discussed sx to watch/return for, she verbalized understanding and was agreeable with plan. Pt well appearing at [place], ambulated with steady gait. Initially mild hypotension and tachycardia likely from volume depletion and vomiting. Improved with IVF and po intake. Medication Reconcilliation Current Medication List: was personally reviewed by me Blood Pressure Screening Patient's blood pressure: Normal blood pressure Blood pressure disposition: Did not require urgent referral Impression Primary Impression: Epigastric abdominal pain Scribe Attestation The scribe's documentation has been prepared under my direction and personally reviewed by me in its entirety. I confirm that the note above accurately reflects all work, treatment, procedures, and medical decision making performed by me. Departure Information Dispostion Home / Self-Care Referrals No Doctor, Assigned (PCP) Forms HOME CARE DOCUMENTATION FORM, IMPORTANT VISIT INFORMATION Patient Instructions [facility] Additional Instructions Please follow up with your regular doctor as a precaution. Please eat a light bland diet and stay well-hydrated. Please take your usual medications. Please consider quitting smoking area smoking can put you at high risk of heart attack and stroke as well as several other life threatening conditions. If you have any recurrent stomach pain, develop chest pain, back pain, trouble breathing, sweating, dizziness, nausea or vomiting, or any other new concerns, please return the emergency room.
[2017-02-21 15:36] LABS: HEMATOCRIT 36.2 % (37-47); MEAN CELL VOLUME 87.9 fL (80-100); MEAN CORPUSCULAR HEMOGLOBIN 30.1 pg (25-34); MEAN CORPUSCULAR HGB CONC 34.3 g/dl (32-36); MEAN PLATELET VOLUME 8.9 fL (7.4-10.4); PLATELET COUNT 244 K/uL (130-400); RED BLOOD COUNT 4.12 M/uL (4.2-5.4); WHITE BLOOD COUNT 5.58 K/uL (4.8-10.8)
[2017-02-21 15:52] LABS: ALT/SGPT 22 U/L (12-78); AST/SGOT 13 U/L (15-37); BLOOD UREA NITROGEN 10 mg/dl (7-18); BUN/CREATININE RATIO 13.9 (10-20); CALCIUM 8.2 mg/dl (8.5-10.1); CARBON DIOXIDE 22 mmol/L (21-32); CHLORIDE 108 mmol/L (98-107); CREATININE 0.74 mg/dl (0.60-1.20); GLUCOSE 84 mg/dl (70-99); POTASSIUM 3.6 mmol/L (3.5-5.1); SODIUM 139 mmol/L (136-145)
[2017-02-21 15:57] LABS: ALKALINE PHOSPHATASE 58 U/L (45-117)
--- NOTE | 2017-02-21 16:17 | DIAGNOSTIC IMAGING REPORT ---
PA CHEST RADIOGRAPH AND UPRIGHT AND SUPINE AP RADIOGRAPHS OF THE ABDOMEN CLINICAL HISTORY: Epigastric pain. COMPARISON STUDY: Chest radiograph June 07, [address] of the abdomen and pelvis February 16, 2017. FINDINGS: Several calcified left lung nodules are noted. Left apical opacity favors scarring. There may be scarring within the right lung apex as well. There are old right rib fractures. Cardiomediastinal silhouette is normal. There is no free air. Cholecystectomy clips are present. Calcified granulomas within the spleen are noted. IMPRESSION: 1. No free air or evidence of bowel obstruction. 2. No acute cardiopulmonary findings. Electronically signed by: Henri Salcdeo M.D. 02/21/2017 4:16 PM Dictated Date/Time: 02/21/2017 4:13 PM
[2017-02-21 16:38] LABS: BASO % 0.2 %; BASO ABS # 0.01 K/uL (0-0.2); COMPLETE YES; EOS % 0.7 %; IG% 0.4 %; LYMPH % 28.1 %; LYMPH ABS # 1.57 K/uL (1.2-3.4); MONO % 6.8 %; NEUT % 63.8 %
[2017-02-21] MEDS ORDERED: PANTOprazole INJ 40 MG in SYRINGE 0 ML IV ONE (17:00)
[2017-02-21 19:47] VITALS: BP 118/65; PULSE 73; O2SAT 99
== END 2017-02-21 19:48 | disposition home or self-care (01) ==
LOC: C.EDB 14:39
DX: R10.13 Epigastric pain (principal); Z83.3 Family history of diabetes mellitus; Z82.49 Family history of ischemic heart disease and other diseases of the circulatory system; Z82.0 Family history of epilepsy and other diseases of the nervous system; F17.200 Nicotine dependence, unspecified, uncomplicated

== ENCOUNTER 2017-02-27 17:28 | Emergency (ER) | payer OTHER ==
[~2017-02-27] VITALS: Ht 157.5 cm; Wt 38.6 kg
[~2017-02-27 17:28] MED LIST changes: -ALUM-30 PO
[2017-02-27 17:33] VITALS: TEMP 36.8; Ht 157.5 cm; Wt 38.6 kg
[2017-02-27] MEDS ORDERED: KETOROLAC TROMETHAMINE 15 MG/ML VIAL IV STA (18:12)
[2017-02-27] MEDS ORDERED: SODIUM CHLORIDE 0.9% 1000ML 1,000 ML IV STA (18:12)
[2017-02-27 18:35] LABS: HEMATOCRIT 35.8 % (37-47); MEAN CELL VOLUME 87.3 fL (80-100); MEAN CORPUSCULAR HEMOGLOBIN 30.5 pg (25-34); MEAN CORPUSCULAR HGB CONC 34.9 g/dl (32-36); MEAN PLATELET VOLUME 8.9 fL (7.4-10.4); PLATELET COUNT 234 K/uL (130-400); WHITE BLOOD COUNT 6.92 K/uL (4.8-10.8)
[2017-02-27 18:36] LABS: URINE APPEARANCE CLEAR (CLEAR); URINE BILIRUBIN NEG (NEG); URINE COLOR YELLOW; URINE NITRITE NEG (NEG); URINE SPECIFIC GRAVITY 1.011 (1.000-1.030); UROBILINOGEN NEG (NEG); ZZUR CULT IF INDIC CLEAN CATCH NO
[2017-02-27 18:45] LABS: MANUAL MICROSCOPIC REQUIRED? NO; REVIEW REQ? NO
[2017-02-27] MEDS ORDERED: KETOROLAC TROMETHAMINE 30 MG/ML VIAL ONE (18:50)
[2017-02-27 19:02] LABS: BUN/CREATININE RATIO 11.5 (10-20); CALCIUM 8.2 mg/dl (8.5-10.1); CREATININE 0.65 mg/dl (0.60-1.20); POTASSIUM 3.8 mmol/L (3.5-5.1)
[2017-02-27 19:04] LABS: ALB/GLOB RATIO 0.9 (0.9-2)
[2017-02-27 19:14] LABS: BASO % 0.1 %; BASO ABS # 0.01 K/uL (0-0.2); COMPLETE YES; EOS % 1.2 %; IG% 0.3 %; LYMPH % 29.3 %; LYMPH ABS # 2.03 K/uL (1.2-3.4); MONO % 5.1 %
[2017-02-27] MEDS ORDERED: OPTIRAY 320 IV PRN (21:00)
--- NOTE | 2017-02-27 21:30 | DIAGNOSTIC IMAGING REPORT ---
CT OF THE ABDOMEN AND PELVIS WITH CONTRAST CLINICAL HISTORY: Right lower quadrant pain and nausea. COMPARISON STUDY: CT of the abdomen and pelvis February 16, 2017 and abdominal series February 21, 2017. TECHNIQUE: Following IV administration of 92 mL of Optiray-320, axial images of the abdomen and pelvis were obtained from the lung bases to the proximal femurs. Images were reviewed in the axial, sagittal, and coronal planes. IV contrast was administered without complication. A dose lowering technique was utilized adhering to the principles of ALARA. Oral contrast was administered. CT DOSE: 240.02 mGy.cm FINDINGS: Visualized portions of the lower chest demonstrate moderate emphysema. A possible 6 mm groundglass nodule within the left lower lobe is partially imaged on this exam. This is shown on image 1 of 391. The liver, adrenal glands, kidneys and pancreas are normal. There are calcified granulomas within the spleen. There is no biliary ductal dilatation status post cholecystectomy. The appendix is likely visualized and is normal. There is no evidence for a bowel obstruction. There is no lymphadenopathy. Note is made of an apparent 1.4 cm enhancing lesion within the left lateral base of the bladder shown on axial image 348 of 391. No suspicious osseous lesion is identified. There is no pneumatosis, free air or portal venous gas. IMPRESSION: 1. Apparent 1.4 cm enhancing lesion within the left lateral base of the bladder. This is highly suggestive of a urothelial lesion and nonemergent urologic consultation is recommended for consideration for cystoscopy. Discussed with Harriett Mcgrath at time of dictation. 2. No acute process within the abdomen or pelvis. Appendix likely visualized and within normal limits. No bowel obstruction. 3. Moderate emphysema. Possible 6 mm groundglass nodule within the left lower lobe. This is only partially imaged on this exam and could be artifactual. However, a nonemergent chest CT is recommended to exclude a nodule. Electronically signed by: Henri Salcedo M.D. 02/27/2017 9:29 PM Dictated Date/Time: 02/27/2017 9:05 PM
--- NOTE | 2017-02-27 21:41 | EMERGENCY ROOM VISIT NOTE ---
History First contact with patient: 17:37 Chief Complaint: ABDOMINAL PAIN Stated Complaint: PAIN IN RIGHT LOWER SIDE History of Present Illness The patient is a 52 year old female who presents to the Emergency Room with complaints of abdominal pain. The patient states that she has had an aching pain in her right lower abdomen which was on and off yesterday and became worse today. She has had associated nausea, but no vomiting. She rates the discomfort a 9/10. She has taken [id number] medications with no relief. She denies any changes in her bowel movements or urinary symptoms. She has had a previous hysterectomy and cholecystectomy. The patient has had some issues with chronic abdominal pain, but she states that that is typically located in the upper abdomen and that this pain is different. She denies any abnormal vaginal discharge or bleeding. She has not seen any other providers regarding this pain. Review of Systems A complete 10 point review of systems was reviewed with the patient with pertinent positives and negatives as per history of present illness. All else were negative. Past Medical/Surgical History Medical Problems: (1) H/O emphysema Surgical Problems: (1) H/O: hysterectomy (2) Hx of BSO (bilateral salpingo-oophorectomy) Family History Cancer Diabetes mellitus Heart disease Hypertension Kidney disease Kidney stones Liver disease Lung disease Seizures Social History Smoking Status: Current Every Day Smoker Drug Use: none Marital Status: Housing Status: lives with family Occupation Status: unemployed Current/Historical Medications Scheduled Cholecalciferol (Vitamin D3), 2 TAB PO DAILY Citalopram Hydrobromide (Celexa), 40 MG PO DAILY Dicyclomine Hcl (Dicyclomine Hcl), 20 MG PO QID Fluticasone Propionate (Nasal) (Flonase Allergy Relief), 1 SPRAY NA DAILY Gabapentin (Neurontin), 200 MG PO TID Lorazepam (Lorazepam), 0.5 MG PO BID Mometasone Furoate-Formoterol (Dulera 200/5 Mcg), 1 AER INH BID Pantoprazole (Protonix), 40 MG PO BID Roflumilast (Daliresp), 1 TAB PO DAILY Sucralfate (Carafate), 1 GM PO ACHS Tamoxifen (Nolvadex), 20 MG PO HS Tiotropium [place] (Spiriva Handihaler), 1 CAP INH DAILY Topiramate (Topamax), 50 MG PO BID Venlafaxine Hcl (Venlafaxine Extended Rel), 1 CAP PO QAM Venlafaxine Hcl (Effexor Extended Rel), 1 CAP PO QAM Scheduled PRN Albuterol Hfa (Ventolin Hfa), 2-4 PUFFS INH Q6H PRN for SOB/Wheezing Allergies Coded Allergies: Adhesives (Verified Adverse Reaction, Mild, irritates skin, 02/27/17) Aspirin (Verified Adverse Reaction, Mild, iritates stomach, 02/27/17) Acetaminophen (Verified Adverse Reaction, Unknown, SEVERE CONSTIPATION, 02/27/17) Oxycodone (Verified Adverse Reaction, Unknown, SEVERE CONSTIPATION, 02/27) Physical Exam Vital Signs Date Time Temp Pulse Resp B/P (MAP) Pulse Ox O2 Delivery O2 Flow Rate FiO2 02/27/17 21:45 78 20 116/70 98 02/27/17 21:04 77 20 149/89 100 Room Air 02/27/17 19:35 75 20 137/77 100 Room Air 02/27/17 18:49 90 02/27/17 17:33 36.8 128 18 112/78 97 Room Air Physical Exam VITALS: Vitals are noted on the nurse's note and reviewed by myself. Vital signs stable. GENERAL: This is a 52-year-old female, in no acute distress, nondiaphoretic, well-developed well-nourished. HEENT: Normocephalic. PERRLA. EOMI. Nares patent. Mucous membranes moist. Neck is supple without nuchal rigidity. HEART: Regular rate and rhythm without murmurs gallops or rubs. LUNGS: Clear to auscultation bilaterally without wheezes, rales or rhonchi. ABDOMEN: Positive bowel sounds x 4. Soft, nondistended, mild tenderness in the right lower quadrant. No guarding or rebound tenderness. NEURO: Patient was alert and oriented to person place and time. Medical Decision & Procedures ER Provider Diagnostic Interpretation: CT OF THE ABDOMEN AND PELVIS WITH CONTRAST FINDINGS: Visualized portions of the lower chest demonstrate moderate emphysema. A possible 6 mm groundglass nodule within the left lower lobe is partially imaged on this exam. This is shown on image 1 of 391. The liver, adrenal glands, kidneys and pancreas are normal. There are calcified granulomas within the spleen. There is no biliary ductal dilatation status post cholecystectomy. The appendix is likely visualized and is normal. There is no evidence for a bowel obstruction. There is no lymphadenopathy. Note is made of an apparent 1.4 cm enhancing lesion within the left lateral base of the bladder shown on axial image 348 of 391. No suspicious osseous lesion is identified. There is no pneumatosis, free air or portal venous gas. IMPRESSION: 1. Apparent 1.4 cm enhancing lesion within the left lateral base of the bladder. This is highly suggestive of a urothelial lesion and nonemergent urologic consultation is recommended for consideration for cystoscopy. Discussed with Harriett Mcgrath at time of dictation. 2. No acute process within the abdomen or pelvis. Appendix likely visualized and within normal limits. No bowel obstruction. 3. Moderate emphysema. Possible 6 mm groundglass nodule within the left lower lobe. This is only partially imaged on this exam and could be artifactual. However, a nonemergent chest CT is recommended to exclude a nodule. Laboratory Results 02/27/17 18:24 Red Blood Count 4.10, Mean Corpuscular Volume 87.3, Mean Corpuscular Hemoglobin 30.5, Mean Corpuscular Hemoglobin Concent 34.9, Mean Platelet Volume 8.9, Neutrophils (%) (Auto) 64.0, Lymphocytes (%) (Auto) 29.3, Monocytes (%) (Auto) 5.1, Eosinophils (%) (Auto) 1.2, Basophils (%) (Auto) 0.1, Neutrophils # (Auto) 4.43, Lymphocytes # (Auto) 2.03, Monocytes # (Auto) 0.35, Eosinophils # (Auto) 0.08, Basophils # (Auto) 0.01 02/27/17 18:24 Test 02/27/17 18:24 White Blood Count 6.92 K/uL (4.8-10.8) Red Blood Count 4.10 M/uL (4.2-5.4) Hemoglobin 12.5 g/dL (12.0-16.0) Hematocrit 35.8 % (37-47) Mean Corpuscular Volume 87.3 fL (80-100) Mean Corpuscular Hemoglobin 30.5 pg (25-34) Mean Corpuscular Hemoglobin Concent 34.9 g/dl (32-36) Platelet Count 234 K/uL (130-400) Mean Platelet Volume 8.9 fL (7.4-10.4) Neutrophils (%) (Auto) 64.0 % Lymphocytes (%) (Auto) 29.3 % Monocytes (%) (Auto) 5.1 % Eosinophils (%) (Auto) 1.2 % Basophils (%) (Auto) 0.1 % Neutrophils # (Auto) 4.43 K/uL (1.4-6.5) Lymphocytes # (Auto) 2.03 K/uL (1.2-3.4) Monocytes # (Auto) 0.35 K/uL (0.11-0.59) Eosinophils # (Auto) 0.08 K/uL (0-0.5) Basophils # (Auto) 0.01 K/uL (0-0.2) RDW Standard Deviation 44.7 fL (36.4-46.3) RDW Coefficient of Variation 14.1 % (11.5-14.5) Immature Granulocyte % (Auto) 0.3 % Immature Granulocyte # (Auto) 0.02 K/uL (0.00-0.02) Red Blood Cell Morphology Unremarkable Urine Color YELLOW Urine Appearance CLEAR (CLEAR) Urine pH 6.0 (4.5-7.5) Urine Specific [place] 1.011 (1.000-1.030) Urine Protein NEG (NEG) Urine Glucose (UA) NEG (NEG) Urine Ketones NEG (NEG) Urine Occult Blood NEG (NEG) Urine Nitrite NEG (NEG) Urine Bilirubin NEG (NEG) Urine Urobilinogen NEG (NEG) Urine Leukocyte Esterase NEG (NEG) Anion Gap 5.0 mmol/L (3-11) Est Creatinine Clear Calc Drug Dose 61.0 ml/min Estimated GFR () 117.5 Estimated GFR (Non- 101.4 BUN/Creatinine Ratio 11.5 (10-20) Calcium Level 8.2 mg/dl (8.5-10.1) Total Bilirubin 0.2 mg/dl (0.2-1) Aspartate Amino Transf (AST/SGOT) 11 U/L (15-37) Alanine Aminotransferase (ALT/SGPT) 19 U/L (12-78) Alkaline Phosphatase 56 U/L (45-117) Total Protein 7.0 gm/dl (6.4-8.2) Albumin 3.4 gm/dl (3.4-5.0) Globulin 3.6 gm/dl (2.5-4.0) Albumin/Globulin Ratio 0.9 (0.9-2) Medications Administered Medications (Trade) Dose Ordered Sig/Rosalino Route Start Time Stop Time Status Last Admin Dose Admin Sodium Chloride 1,000 ml @ 999 mls/hr Q1H1M STAT IV 02/27/17 18:12 02/27/17 19:12 DC 02/27/17 18:53 999 MLS/HR Ketorolac Tromethamine (Toradol Inj) 15 mg NOW STAT IV 02/27/17 18:12 02/27/17 18:14 DC 02/27/17 18:54 15 MG ED Course The patient was evaluated as above. Labs were drawn and IV access was obtained. Patient was medicated with 1 L normal saline solution and [address] of the abdomen and pelvis was performed and read by radiology as above. Patient was reevaluated and findings were discussed. She is ready for discharge. Discharge instructions were reviewed with the patient. The patient verbalized understanding of my assessment and treatment plan and was discharged home in good condition. Medical Decision Differential diagnosis includes appendicitis, diverticulitis, colitis, urinary tract infection, malignancy, intra-abdominal abscess, bowel obstruction, constipation, among others. The patient is a 52-year-old female who presents today complaining of right lower quadrant abdominal pain. Previous records were reviewed and the patient has multiple visits here recently for abdominal pain. However, she has previously been seen mostly for right upper quadrant pain. I was able to have case management access the patient's [facility] records. She has had very frequent visits to the [place] emergency Department, including 6 visits last month for various complaints. She was seen there recently for right lower quadrant abdominal pain and had a negative workup. Labs today revealed no leukocytosis, anemia or concerning electrolyte abnormalities. Urinalysis was not suggestive of infection. A CT scan was performed as the patient states that this pain is completely new for her and does not feel like the pain she has been seen here for previously. The CT scan did not show any acute infectious or inflammatory findings within the abdomen. It did, however show what appears to be a urothelial lesion. The patient was informed that this is very concerning for malignancy and she will need to follow -up with urology for cystoscopy. She was given a referral for urology. Daily allergy of her abdominal pain is unclear, but the patient clearly does have some issues with chronic abdominal pain. She was referred back to her primary care provider for evaluation of this. Based on the patient's presentation and work up, I feel the patient is stable for outpatient treatment. The patient was educated to return to the emergency department for any worsening of their current condition or new/concerning symptoms. She will follow up with her PCP. Medication reconciliation: I attest that I have personally reviewed the patient 's current medication list. Blood pressure screening: Patient was found to have normal blood pressure on screening and does not require follow-up. Impression Primary Impression: Right lower quadrant abdominal pain Additional Impression: Lesion of bladder Departure Information Dispostion Home / Self-Care Condition GOOD Referrals Toñito Patterson M.D. (PCP) Jefferson Pepe M.D. Patient Instructions My [facility] Additional Instructions You have been treated in the Emergency Department your Abdominal Pain. Laboratory results and imaging studies have ruled out any emergent causes for your abdominal pain which would warrant admission or surgery. There were some abnormal findings in your CT scan which you will need follow-up for. There was a possible nodule on the lung and you may need a dedicated chest CT scan. You should see your primary care provider regarding this finding. There appears to be a lesion of your bladder. You will need follow-up with urology for further exploration of this. For pain control, you can use the following [id number] medicines (if >12 yo): - Regular strength (325mg/tab) Tylenol (acetaminophen) 2 tabs every 4-6 hours as needed. Do not exceed 12 tablets in a 24 hour period. Avoid taking more than 4 grams (4000 mg) of Tylenol per day. This includes any other sources of acetaminophen you may take on a regular basis. - Regular strength (200 mg/tab) Advil (ibuprofen) 1-2 tabs every 4-6 hours as needed. Do not exceed a dose of 3200 mg per day. Drink plenty of water and stay well hydrated. As with any trip to the Emergency Department, you should follow-up with your Primary Care Provider from today's visit. Return to the emergency department if your symptoms persist despite treatment plan outlined above or if the following symptoms occur: increased fevers, chills , worsening nausea/vomiting, blood in your stool or urine. Problem Qualifiers
[2017-02-27 21:45] VITALS: BP 116/70; PULSE 78; O2SAT 98
== END 2017-02-27 21:46 | disposition home or self-care (01) ==
LOC: C.EDB 17:29
DX: R10.31 Right lower quadrant pain (principal); N32.9 Bladder disorder, unspecified; J32.9 Chronic sinusitis, unspecified; F17.200 Nicotine dependence, unspecified, uncomplicated; Z90.710 Acquired absence of both cervix and uterus; Z90.722 Acquired absence of ovaries, bilateral; Z79.899 Other long term (current) drug therapy; Z88.5 Allergy status to narcotic agent; Z88.6 Allergy status to analgesic agent; Z91.09 Other allergy status, other than to drugs and biological substances; Z80.9 Family history of malignant neoplasm, unspecified; Z83.3 Family history of diabetes mellitus; Z82.49 Family history of ischemic heart disease and other diseases of the circulatory system; Z84.1 Family history of disorders of kidney and ureter; Z82.0 Family history of epilepsy and other diseases of the nervous system

== ENCOUNTER 2017-09-18 18:33 | Emergency (ER) | payer OTHER ==
[~2017-09-18] VITALS: Ht 158.8 cm; Wt 43.2 kg
[~2017-09-18 18:33] MED LIST changes: +GABA100C13 PO; -GABA1CAP PO; -OXYC-57 PO; -TAMO20TA47 PO; +TAMO20TA9 PO
[2017-09-18 18:38] VITALS: TEMP 36.7; Ht 158.8 cm; Wt 43.2 kg
[2017-09-18] MEDS ORDERED: ALBUT/IPRATROP 3MG/0.5MG NEB 3 ML VIAL INH STA (19:01)
[2017-09-18] MEDS ORDERED: METHYLPREDNISOLONE 125 MG VIAL IV STA (19:01)
[2017-09-18 19:24] LABS: HEMATOCRIT 33.9 % (37-47); HEMOGLOBIN 11.9 g/dL (12.0-16.0); MEAN CELL VOLUME 88.7 fL (80-100); MEAN CORPUSCULAR HEMOGLOBIN 31.2 pg (25-34); MEAN CORPUSCULAR HGB CONC 35.1 g/dl (32-36); MEAN PLATELET VOLUME 8.7 fL (7.4-10.4); PLATELET COUNT 249 K/uL (130-400); RED CELL DISTRIBUTION WIDTH CV 13.7 % (11.5-14.5); RED CELL DISTRIBUTION WIDTH SD 44.4 fL (36.4-46.3); WHITE BLOOD COUNT 9.27 K/uL (4.8-10.8)
[2017-09-18 19:42] LABS: IG# 0.03 K/uL (0.00-0.02); LYMPH % 15.7 %; LYMPH ABS # 1.46 K/uL (1.2-3.4); MONO % 5.5 %; MONO ABS # 0.51 K/uL (0.11-0.59); NEUT % 78.5 %; NEUT ABS # 7.27 K/uL (1.4-6.5)
[2017-09-18 19:47] LABS: ALBUMIN 3.5 gm/dl (3.4-5.0); ALT/SGPT 23 U/L (12-78); BLOOD UREA NITROGEN 8 mg/dl (7-18); CALCIUM 8.2 mg/dl (8.5-10.1); CARBON DIOXIDE 23 mmol/L (21-32); CREATININE 0.73 mg/dl (0.60-1.20); GLUCOSE 109 mg/dl (70-99); POTASSIUM 3.5 mmol/L (3.5-5.1); SODIUM 142 mmol/L (136-145)
[2017-09-18 19:52] LABS: ALKALINE PHOSPHATASE 46 U/L (45-117); AST/SGOT 14 U/L (15-37); CKMB 0.9 ng/ml (0.5-3.6); TOTAL PROTEIN 6.8 gm/dl (6.4-8.2)
--- NOTE | 2017-09-18 20:06 | DIAGNOSTIC IMAGING REPORT ---
CHEST 2 VIEWS ROUTINE HISTORY: 52 years-old Female RIB PAIN, SOB acute shortness of breath with lateral rib pain COMPARISON: Acute abdominal series radiographs 02/21/2017 TECHNIQUE: PA and lateral views of the chest FINDINGS: Cardiomediastinal and hilar silhouettes are within normal limits. Granulomas are noted within the left lung. There is no pneumothorax, pleural effusion, focal airspace consolidation or overt pulmonary edema. Lungs are mildly hyperinflated. The bones of the chest appear grossly intact. Probable biopsy clip projects over the left breast. Cholecystectomy clips of the right upper abdomen. IMPRESSION: Mild hyperinflation without acute process. The above report was generated using voice recognition software. It may contain grammatical, syntax or spelling errors. Electronically signed by: Jesse Thompson M.D. 09/18/2017 8:04 PM Dictated Date/Time: 09/18/2017 8:03 PM
[2017-09-18] MEDS ORDERED: ACETAMINOPHEN 500 MG TAB PO STA (20:30)
[2017-09-18] MEDS ORDERED: DOXYCYCLINE HYCLATE 100 MG CAP PO ONE (20:30)
[2017-09-18] MEDS ORDERED: DOXY100C76 PO (20:44)
--- NOTE | 2017-09-18 20:45 | EMERGENCY ROOM VISIT NOTE ---
History First contact with patient: 18:42 Chief Complaint: SHORTNESS OF BREATH Stated Complaint: TROUBLE BREATHING, PAIN IN BACK Nursing Triage Summary: see triage note History of Present Illness Patient is a 52-year-old white female with past medical history significant for COPD, anxiety, chronic abdominal pain/IBS, migraine disorder, fibromyalgia, among other medical problems who presents emergency department for evaluation of rib and chest pain and shortness of breath. The patient reports that she has been sick for 9 days. She reports progressively worsening shortness of breath and difficulty breathing. She was seen in the emergency department at [facility] 3 times. She was initially diagnosed with pneumonia and started on an unknown antibiotic which she finished. She did not feel any better so she went back 3 days later and was diagnosed with a COPD exacerbation. She was placed on a course of prednisone which she also finished , and another unknown medication. She again did not feel any better and went back to the emergency department in an additional 2 days and was diagnosed with bronchitis. She reports that she had laboratory studies, chest x-ray, CT scan and EKG is performed. Patient also reports that she was seen by her PCP yesterday who extended her course of prednisone. She denies cough. She does bring up some thick green mucus however. She feels a generalized heaviness in her chest, and notes bilateral squeezing rib pain and pain in her back. She occasionally has pain with deep breathing. She has not checked her temperature with a thermometer but does not feel feverish. She denies any palpitations. She has been using Tylenol and Mucinex in addition to her albuterol, Dulera and Spiriva inhalers. She is only using 2 puffs of her albuterol inhaler at a time , and only did her inhaler 3 times today. She states that she did not feel that bad when she woke up this morning but her symptoms worsened as the day has gone on. She has never been hospitalized or intubated for her breathing. She denies any calf or leg pain or swelling. No recent travel. Patient is on Chantix, and is down to roughly 3 cigarettes per day. Review of Systems Review of systems as per HPI. All other systems reviewed were negative. 10 systems reviewed. Past Medical/Surgical History Medical Problems: (1) Abdominal pain in female patient (2) Acute bronchitis (3) Anemia (4) Anxiety (5) Breast cancer (6) Constipation (7) COPD (chronic obstructive pulmonary disease) (8) Epigastric abdominal pain (9) Epigastric pain (10) Fibromyalgia (11) Flank pain (12) H/O emphysema (13) Headache (14) IBS (irritable bowel syndrome) (15) Lesion of bladder (16) Migraine (17) Right flank pain (18) Right lower quadrant abdominal pain (19) Right upper quadrant abdominal pain Surgical Problems: (1) H/O: hysterectomy (2) History of cholecystectomy (3) Hx of BSO (bilateral salpingo-oophorectomy) (4) S/P breast lumpectomy Electronic medical records are reviewed and summarized as above/below. See Problem List. Family History Cancer Diabetes mellitus Heart disease Hypertension Kidney disease Kidney stones Liver disease Lung disease Seizures Social History Smoking Status: Current Every Day Smoker Drug Use: none Marital Status: Housing Status: lives with family Occupation Status: unemployed Current/Historical Medications Scheduled Cholecalciferol (Vitamin D3), 2 TAB PO DAILY Citalopram Hydrobromide (Celexa), 40 MG PO DAILY Dicyclomine Hcl (Dicyclomine Hcl), 20 MG PO QID Doxycycline Monohydrate (Monodox), 100 MG PO BID Fluticasone Propionate (Nasal) (Flonase Allergy Relief), 1 SPRAY NA DAILY Gabapentin (Neurontin), 200 MG PO TID Lorazepam (Lorazepam), 0.5 MG PO BID Mometasone Furoate-Formoterol (Dulera 200/5 Mcg), 1 AER INH BID Pantoprazole (Protonix), 40 MG PO BID Roflumilast (Daliresp), 1 TAB PO DAILY Sucralfate (Carafate), 1 GM PO ACHS Tamoxifen (Nolvadex), 20 MG PO HS Tiotropium Mallard (Spiriva Handihaler), 1 CAP INH DAILY Topiramate (Topamax), 50 MG PO BID Venlafaxine Hcl (Venlafaxine Extended Rel), 1 CAP PO QAM Venlafaxine Hcl (Effexor Extended Rel), 1 CAP PO QAM Scheduled PRN Albuterol Hfa (Ventolin Hfa), 2-4 PUFFS INH Q6H PRN for SOB/Wheezing Physical Exam Vital Signs Date Time Temp Pulse Resp B/P (MAP) Pulse Ox O2 Delivery O2 Flow Rate FiO2 3/10/18 21:02 90 16 141/81 97 09/18/17 20:27 95 16 156/99 96 Room Air 09/18/17 18:38 36.7 112 20 136/90 100 Room Air Physical Exam CONSTITUTIONAL: Patient is a thin 52-year-old white female who is awake and alert and in no acute distress. She is afebrile. She was initially noted to be tachycardic in triage, however heart rate in the exam room during history and physical exam is in the 80s. Oxygen saturation 100% on room air. She is seated upright on the gurney in no acute distress. No conversational dyspnea. EYES: Pupils equal, round, reactive to light and accommodation. EOMs intact without nystagmus. Sclera are anicteric. ENT: Tympanic membranes intact, with normal landmarks. External canals are clear. Oral and nasopharynx are clear. Mucous membranes are moist, no lesions , tongue and gums appear normal. NECK: No bruits auscultated. Supple without lymphadenopathy. No thyromegaly. No meningeal signs. Full active range of motion without discomfort. CARDIOVASCULAR: Regular rate and rhythm, with normal S1 and S2, no murmur or gallop or rub is heard. No carotid bruits auscultated. No JVD. Peripheral pulses easy to palpable. RESPIRATORY: Breath sounds slightly diminished, but otherwise equal and clear to auscultation without wheezes, rales, or rhonchi heard. Full and equal chest expansion without accessory muscle use or retractions. GI: Bowel sounds are present. Abdomen is soft, nontender, nondistended. No organomegaly. No pulsatile masses. No guarding or rebound. MUSCULOSKELETAL: Full range of motion of extremities x 4 with good strength. No cyanosis, edema, joint tenderness or swelling. No deformity. INTEGUMENTARY: No lesions or rash, normal skin turgor. NEUROLOGICAL: Alert, oriented, and cooperative. Cranial nerves, sensation and strength grossly intact. Pupils round, equal, and react to light, EOMs are full. LYMPH: No lymphadenopathy. Medical Decision & Procedures ER Provider Diagnostic Interpretation: CHEST 2 VIEWS ROUTINE HISTORY: 52 years-old Female RIB PAIN, SOB acute shortness of breath with lateral rib pain COMPARISON: Acute abdominal series radiographs 02/21/2017 TECHNIQUE: PA and lateral views of the chest FINDINGS: Cardiomediastinal and hilar silhouettes are within normal limits. Granulomas are noted within the left lung. There is no pneumothorax, pleural effusion, focal airspace consolidation or overt pulmonary edema. Lungs are mildly hyperinflated. The bones of the chest appear grossly intact. Probable biopsy clip projects over the left breast. Cholecystectomy clips of the right upper abdomen. IMPRESSION: Mild hyperinflation without acute process. Laboratory Results 09/18/17 19:15 Red Blood Count 3.82, Mean Corpuscular Volume 88.7, Mean Corpuscular Hemoglobin 31.2, Mean Corpuscular Hemoglobin Concent 35.1, Mean Platelet Volume 8.7, Neutrophils (%) (Auto) 78.5, Lymphocytes (%) (Auto) 15.7, Monocytes (%) (Auto) 5.5, Eosinophils (%) (Auto) 0.0, Basophils (%) (Auto) 0.0, Neutrophils # (Auto) 7.27, Lymphocytes # (Auto) 1.46, Monocytes # (Auto) 0.51, Eosinophils # (Auto) 0.00, Basophils # (Auto) 0.00 09/18/17 19:15 Test 09/18/17 19:15 09/18/17 19:19 White Blood Count 9.27 K/uL (4.8-10.8) Red Blood Count 3.82 M/uL (4.2-5.4) Hemoglobin 11.9 g/dL (12.0-16.0) Hematocrit 33.9 % (37-47) Mean Corpuscular Volume 88.7 fL (80-100) Mean Corpuscular Hemoglobin 31.2 pg (25-34) Mean Corpuscular Hemoglobin Concent 35.1 g/dl (32-36) Platelet Count 249 K/uL (130-400) Mean Platelet Volume 8.7 fL (7.4-10.4) Neutrophils (%) (Auto) 78.5 % Lymphocytes (%) (Auto) 15.7 % Monocytes (%) (Auto) 5.5 % Eosinophils (%) (Auto) 0.0 % Basophils (%) (Auto) 0.0 % Neutrophils # (Auto) 7.27 K/uL (1.4-6.5) Lymphocytes # (Auto) 1.46 K/uL (1.2-3.4) Monocytes # (Auto) 0.51 K/uL (0.11-0.59) Eosinophils # (Auto) 0.00 K/uL (0-0.5) Basophils # (Auto) 0.00 K/uL (0-0.2) RDW Standard Deviation 44.4 fL (36.4-46.3) RDW Coefficient of Variation 13.7 % (11.5-14.5) Immature Granulocyte % (Auto) 0.3 % Immature Granulocyte # (Auto) 0.03 K/uL (0.00-0.02) Anion Gap 6.0 mmol/L (3-11) Est Creatinine Clear Calc Drug Dose 60.8 ml/min Estimated GFR () 109.0 Estimated GFR (Non- 94.0 BUN/Creatinine Ratio 11.0 (10-20) Calcium Level 8.2 mg/dl (8.5-10.1) Total Bilirubin 0.2 mg/dl (0.2-1) Aspartate Amino Transf (AST/SGOT) 14 U/L (15-37) Alanine Aminotransferase (ALT/SGPT) 23 U/L (12-78) Alkaline Phosphatase 46 U/L (45-117) Total Creatine Kinase 33 U/L (26-192) Creatine Kinase MB 0.9 ng/ml (0.5-3.6) Creatine Kinase MB Ratio 2.7 (0-3.0) Troponin I < 0.015 ng/ml (0-0.045) Total Protein 6.8 gm/dl (6.4-8.2) Albumin 3.5 gm/dl (3.4-5.0) Globulin 3.3 gm/dl (2.5-4.0) Albumin/Globulin Ratio 1.1 (0.9-2) Bedside D-Dimer 150 ng/mlFEU (0-450) Medications Administered Medications (Trade) Dose Ordered Sig/Rosalino Route Start Time Stop Time Status Last Admin Dose Admin Albuterol/ Ipratropium (Duoneb) 3 ml NOW STAT INH 09/18/17 19:01 09/18/17 19:03 DC 09/18/17 19:27 3 ML Methylprednisolone Sodium Succinate (Solu-Medrol IV) 125 mg NOW STAT IV 09/18/17 19:01 09/18/17 19:03 DC 09/18/17 19:27 125 MG Acetaminophen (Tylenol Tab) 1,000 mg NOW STAT PO 09/18/17 20:30 3 20:31 DC 09/18/17 20:44 1,000 MG Doxycycline Hyclate (Vibramycin Cap) 100 mg ONE ONCE PO 09/18/17 20:30 09/18/17 20:31 DC 09/18/17 20:44 100 MG ECG Per My Interpretation Indication: SOB/dyspnea Rate (beats per minute): 86 Rhythm: sinus rhythm Findings: PVC, no acute ischemic change, other (SHORT OK) Change: no significant change ED Course The patient was seen and assessed as above. Her old records were reviewed. Her most recent primary care office visit note and ED notes from [facility] were also obtained electronically, and were reviewed. Her PCP when he saw her yesterday made arrangements for her to be seen by pulmonology on Wednesday the . IV lock was initiated. The patient was given a DuoNeb treatment and Solu- Medrol 125 mg IV. EKG was performed it was as noted above. Laboratory studies were collected. Chest x-ray was performed, with the findings noted above. The patient continued to complain of rib pain. It was not felt that narcotics were warranted. She was given 1 g of Tylenol orally. Laboratory studies noted a normal white count of 9200, she has a chronic, stable anemia, H&H is 11 and 33. Electrolytes are without gross abnormality. Cardiac enzymes are negative. Renal function is normal. D-dimer was performed and was well within normal limits. Given this, and lack of PE risk factors, in addition to the fact that the patient had a recent CT angio just 4 days ago which was negative, repeat CT scan was not performed. Patient history, presentation and ED workup were reviewed with attending physician. She has had symptoms now for almost a week and a half, this is her fourth emergency department visit in that timeframe in addition to being seen by her primary care provider. Patient was given doxycycline 100 mg orally in the emergency department. She was encouraged to use her albuterol inhaler more frequently, she can also do albuterol nebulizers, which ever she feels is more effective. 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 Differential diagnosis includes acute myocardial infarction, acute coronary syndrome, myocarditis, pericarditis, pulmonary embolism, pneumonia, pneumothorax , cardiomyopathy, congestive heart failure, anemia , COPD/asthma exacerbation, musculoskeletal, anxiety, costochondritis, among others. Medical Decision See emergency department course. [facility] Drug Monitoring Program Search Results: patient reviewed within database Drug Monitoring Findings: Patient received 25 controlled substance prescriptions from 10 different providers in the last 12 months. She was given a small prescription for tramadol a little over a week ago. Medication Reconcilliation Current Medication List: was personally reviewed by me Blood Pressure Screening Patient's blood pressure: Normal blood pressure Blood pressure disposition: Did not require urgent referral Impression Primary Impression: COPD exacerbation Additional Impression: Rib pain Departure Information Prescriptions Doxycycline Monohydrate (Monodox) 100 Mg Cap 100 MG PO BID, #14 CAP Prov: Anna Cordero PA 09/18/17 Referrals No Doctor, Assigned (PCP) Patient Instructions My [facility] Additional Instructions Doxycycline 100mg: Take one pill twice daily for seven days for your infection. Take with food, but avoid dairy. Avoid prolonged sun exposure since this medication makes you temporarily more susceptible to sunburns. All antibiotics can cause diarrhea. If this occurs and you feel worse or it does not resolve in 1-2 days follow up with your doctor or return to the Emergency Department as this could be signs of serious underlying problems. Any medication can cause an allergic reaction, stop the pills immediately and return to the ER for rash, hives, breathing difficulties, or swelling. Albuterol Inhaler: Take 2-4 puffs every 4 hours for the next 5-7 days, then as needed. Ibuprofen(Motrin, Advil) may be used for fever or pain. Use 600mg every six hours as needed. Take with food. Avoid using more than 2400mg in a 24 hour period. Do not use 2400mg per day for more than three consecutive days without physician direction. Prolonged inappropriate use can lead to stomach upset or ulcers. This is available over the counter and typically comes in 200mg tablets. (AND/OR) Acetaminophen(Tylenol) may be used for fever or pain. Use 1000mg every eight hours as needed. Avoid using more than 3000mg in a 24 hour period. This is available over the counter. Rest and drink plenty of fluids. Avoid strenuous activity until your symptoms resolve and your breathing returns to normal. Continue current medications. Return to the ER for chest pain, difficulty breathing, persistent fevers, vomiting, worsening of your condition, or as needed Follow-up with pulmonology as you have scheduled on Wednesday. Problem Qualifiers
[2017-09-18 21:02] VITALS: BP 141/81; PULSE 90; O2SAT 97
== END 2017-09-18 21:02 | disposition home or self-care (01) ==
LOC: C.EDB 18:34 → C.EDC 21:02
DX: J44.1 Chronic obstructive pulmonary disease with (acute) exacerbation (principal); R07.81 Pleurodynia; D64.9 Anemia, unspecified; K58.9 Irritable bowel syndrome, unspecified; G43.909 Migraine, unspecified, not intractable, without status migrainosus; M79.7 Fibromyalgia; F41.9 Anxiety disorder, unspecified; F17.200 Nicotine dependence, unspecified, uncomplicated; Z90.710 Acquired absence of both cervix and uterus; Z90.722 Acquired absence of ovaries, bilateral; Z90.49 Acquired absence of other specified parts of digestive tract; Z87.09 Personal history of other diseases of the respiratory system; Z85.3 Personal history of malignant neoplasm of breast; Z83.3 Family history of diabetes mellitus; Z82.49 Family history of ischemic heart disease and other diseases of the circulatory system; Z84.1 Family history of disorders of kidney and ureter; Z83.6 Family history of other diseases of the respiratory system; Z83.79 Family history of other diseases of the digestive system; Z82.0 Family history of epilepsy and other diseases of the nervous system